=== PATIENT | male | born 1960 | race Caucasian/White ===

== ENCOUNTER → 2018-01-17 13:50 | Outpatient (CLI) | payer OTHER, MEDICARE, SELFPAY | PROVIDERS: Visit Provider Nurse Practitioner Family | DX: R69 Illness, unspecified (principal) ==

== ENCOUNTER → 2018-01-28 14:23 | Outpatient (CLI) | payer OTHER, MEDICARE, SELFPAY ==
--- NOTE | 2018-01-28 14:26 | CI_ITS ---
Cerebrovascular Exam Indications: 785.9 Bruit. IMPRESSIONS 1. The bilateral vertebral arteries are patent with normal antegrade flow. 2. Study suggests less than 20% stenosis involving the right internal carotid artery and the left internal carotid artery. Carotid duplex study. Complete study and Doppler flow study including spectral analysis, color and issa scale imaging. Height: Height: 175.3cm. Height: 69in. Weight: Weight: 81.6kg. Weight: 179.6lb. Body mass index: BMI: 26.6kg/m^2. Body surface area: BSA: 2.01m^2. Location: Vascular laboratory. Patient status: Outpatient. Tables: Arterial flow: + +--------+--------+ Location V sys V ed + +--------+--------+ Right CCA - proximal 95.9cm/s 27.5cm/s + +--------+--------+ Right CCA - distal 116cm/s 36.1cm/s + +--------+--------+ Right ECA 112cm/s -------- + +--------+--------+ Right ICA - proximal 136cm/s 37.7cm/s + +--------+--------+ Right ICA - mid 95.9cm/s 32.2cm/s + +--------+--------+ Right ICA - distal 99cm/s 30.6cm/s + +--------+--------+ Right vertebral 34.6cm/s -------- + +--------+--------+ Left CCA - proximal 92.7cm/s 24.4cm/s + +--------+--------+ Left CCA - distal 109cm/s 33cm/s + +--------+--------+ Left ECA 149cm/s 130cm/s + +--------+--------+ Left ICA - proximal 110cm/s 40.9cm/s + +--------+--------+ Left ICA - mid 95.9cm/s 30.6cm/s + +--------+--------+ Left ICA - distal 65.2cm/s 19.6cm/s + +--------+--------+ Left vertebral 49.5cm/s -------- + +--------+--------+ Velocity ratios: + + + + + + Right, V sys Right, V ed Left, V sys Left, V ed + + + + + + Max ICA/dist CCA 1.17 1.04 1.01 1.24 + + + + + + (Report amended ) Electronically signed by: Tan Retana [id number]
== END ==
PROVIDERS: Family Provider Physician Assistant; PCP Nurse Practitioner Family; Visit Provider Nurse Practitioner Family
DX: R09.89 Other specified symptoms and signs involving the circulatory and respiratory systems (principal)
CPT/HCPCS: 93880

== ENCOUNTER → 2018-02-07 08:38 | Outpatient (CLI) | payer OTHER, MEDICARE, SELFPAY ==
[2018-02-07 09:28] LABS: Basophils % 0.5 % (0.1-2.0); Eosinophils # 0.2 K/mm3 (0.0-0.4); Eosinophils % 3.7 % (0.1-12.0); Hematocrit 40.4 % (42.0-52.0); Hemoglobin 12.3 g/dL (14.1-18.0); Lymphocytes # 1.1 K/mm3 (0.7-4.5); Lymphocytes % 23.9 K/mm3 (10-50); Mean Corpuscular HGB Conc 30.6 g/dL (31.8-35.4); Mean Corpuscular Hemoglobin 31.6 pg (27.0-31.2); Mean Corpuscular Volume 103.3 fl (80-94); Mean Platelet Volume 7.8 fl (7.4-10.4); Monocytes # 0.5 K/mm3 (0.1-1.0); Neutrophils # 2.9 K/mm3 (1.8-7.8); Neutrophils % 61.8 % (37.0-80.0); Platelet Count 240 K/mm3 (142-424); Red Blood Count 3.91 M/mm3 (4.60-6.20); Red Cell Distribution Width 13.7 % (11.5-17.5); White Blood Count 4.7 K/mm3 (4.8-10.8)
[2018-02-07 10:00] LABS: Alanine Aminotransferase 18 U/L (12-78); Albumin Level 3.6 gm/dL (3.4-5.0); Albumin/Globulin Ratio 1.1 (1.1-1.8); Alkaline Phosphatase 93 U/L (46-116); Anion Gap 13.6 mEq/L (5-15); Aspartate Amino Transferase 13 U/L (15-37); Bilirubin,Total 0.2 mg/dL (0.2-1.0); Blood Urea Nitrogen 23 mg/dL (7-18); Calcium 9.1 mg/dL (8.5-10.1); Carbon Dioxide 26 mmol/L (21.0-32.0); Chloride 106 mmol/L (98-107); Chol/HDL Ratio 5.4 (1-3.5); Cholesterol 204 mg/dL (140-200); Creatinine,Serum 0.88 mg/dL (0.70-1.30); Estimated Glomerular Filt Rate 89 ml/min (>60); GFR (African American) 108 ML/MIN (>60); Globulin 3.4 gm/dl (1.3-3.2); Glucose 86 mg/dL (74-106); HDL Cholesterol 38 mg/dL (27-67); LDL Cholesterol 148 mg/dL (0-130); Potassium 4.6 mmoL/L (3.5-5.1); Sodium 141 mmol/L (136-145); Triglycerides 90 mg/dL (30-200); VLDL Cholesterol 18 mg/dL (0-40)
== END ==
PROVIDERS: Visit Provider Nurse Practitioner Family
DX: R69 Illness, unspecified (principal); Z13.220 Encounter for screening for lipoid disorders
CPT/HCPCS: 36415; 80053; 80061; 85025

== ENCOUNTER → 2018-11-21 07:16 | Outpatient (CLI) | payer OTHER, MEDICARE, SELFPAY ==
--- NOTE | 2018-11-21 07:22 | CA_ITS ---
PROCEDURE: INDICATIONS FOR THE TEST: Chest pain COPD Heart Murmur Tobacco Smoking Palpitations Fatigue+ Syncope Edema Hypertension Diabetes Mellitus Rheumatic Fever SOB TORRES Obesity Hyperlipidemia Family History HD Additional History CAD, ABN EKG PATIENT INFORMATION HEIGHT: 69 WEIGHT:186 GENDER: Male B/P:110/71 2-D/M-MODE INTERPRETATION: 2-D MEASUREMENTS OBSERVED VALUES IN CMS Right Ventricular Dimension (RVDd) 2.2 Interventricular Septum (Thickness)(IVsd) 1.0 Left Ventricular Internal Dimensions(LVIDd) 5.4 Left Ventricular Posterior Wall (Thickness)(LVPWd) 0.8 Aortic Root 3.2 Aortic Cusp Separation 1.9 Left Atrial Dimensions (LAD) 3.4 2D 1. Left atrium is normal size, left ventricle is normal size, there is no concentric left ventricular hypertrophy, visually estimated ejection fraction 55% with no regional wall motion abnormality. 2. The right atrium and right ventricle are normal size and contractility. 3. The aortic valve is minimally thickened and fibrosed. 4. The mitral and tricuspid valvular grossly normal. 5. The pulmonic valve is grossly normal. 6. No significant pericardial effusion noted. DOPPLER INTERROGATION: Doppler interrogation of the aortic, mitral and tricuspid valvular presence of mild mitral and tricuspid regurgitation, tricuspid regurgitation jet velocity is inadequate for calculation of the right ventricular systolic pressure, diastolic parameters are inconclusive. CONCLUSION: 1. Normal left ventricular size, preserved left ventricular systolic function, visually estimated ejection fraction 55% with no regional wall motion abnormality, diastolic parameters are inconclusive. 2. Mild mitral and tricuspid regurgitation 3. No significant pericardial effusion noted.
--- NOTE | 2018-11-21 07:52 | NM_ITS ---
History and Indications: Hyperlipidemia, family history, fatigue cardiomegaly Procedure: Patient received a 0.4 mg of intravenous Lexiscan, resting heart rate was 62 bpm resting blood pressure 117/68, with Lexiscan maximum heart rate achieved was 74 bpm which is less than 85% of the maximum] heart rate and a blood pressure was 83/51. With Lexiscan patient complained of syncope, shortness of breath. Electrocardiogram: Resting electrocardiogram showed sinus rhythm nonspecific ST-T changes, with Lexiscan there is less than 1.[address] segment depression noted from the baseline EKG. The EKG portion of the Lexiscan Myoview is nondiagnostic. Cardiac stress and resting SPECT images: Cardiac stress and resting SPECT images were obtained using technetium 99 Myoview 31.9 mCi stress and 10.0 mCi at rest. Gated SPECT further analysis of segmental wall motion and calculation of the ejection fraction also done. Cardiac stress and resting SPECT images show uniform myocardial activity without segmental perfusion abnormality, computer derived ejection fraction is 58% with no regional wall motion abnormality, right ventricle is normal size and contractility. Conclusion: 1. The EKG portion of the Lexiscan Myoview is nondiagnostic. 2. No scintigraphic evidence of reversible ischemia seen, computer derived ejection fraction 58% with no regional wall motion abnormality, right ventricle is normal size and contractility. 3. Normal Lexiscan Myoview study.
--- NOTE | 2018-11-21 10:24 | HMH.ITSHM ---
Current Home Medications as stated by this patient Sonido York or printing sales representative. []citalopram
== END ==
PROVIDERS: PCP Emergency Medicine; Visit Provider Nurse Practitioner Family
DX: R94.31 Abnormal electrocardiogram [ECG] [EKG] (principal); R93.89 Abnormal findings on diagnostic imaging of other specified body structures; E78.5 Hyperlipidemia, unspecified; I25.10 Atherosclerotic heart disease of native coronary artery without angina pectoris; I25.84 Coronary atherosclerosis due to calcified coronary lesion
CPT/HCPCS: 78452; 93017; 93306; A9502

== ENCOUNTER → 2019-05-28 11:45 | Outpatient (CLI) | payer OTHER, MEDICARE, SELFPAY ==
[2019-05-28 13:00] LABS: Alanine Aminotransferase 15 U/L (12-78); Albumin Level 3.9 gm/dL (3.4-5.0); Alkaline Phosphatase 106 U/L (46-116); Aspartate Amino Transferase 13 U/L (15-37); Bilirubin,Direct 0.1 mg/dL (0.0-0.2); Bilirubin,Indirect 0.7 mg/dL (0.0-0.9); Bilirubin,Total 0.8 mg/dL (0.2-1.0); Chol/HDL Ratio 3.2 (1-3.5); Cholesterol 159 mg/dL (140-200); HDL Cholesterol 49 mg/dL (27-67); LDL Cholesterol 98 mg/dL (0-130); Total Protein,Serum 7.3 gm/dL (6.4-8.2); Triglycerides 59 mg/dL (30-200); VLDL Cholesterol 12 mg/dL (0-40)
== END ==
PROVIDERS: Urology; Visit Provider Internal Medicine Cardiovascular Disease
DX: E78.2 Mixed hyperlipidemia (principal)
CPT/HCPCS: 36415; 80061; 80076

== ENCOUNTER → 2021-08-10 07:11 | Outpatient (CLI) | payer OTHER, MEDICARE, SELFPAY ==
--- NOTE | 2021-08-10 | CA_ITS ---
APPROVED REPORT Exam: Pharmacologic Technologist: Sherrill Garza, Ht: 5 ft 9 in Wt: 206 lbs BSA: 2.09 m2 HR: 64 bpm BP: 140/84 mmHg Rhythm: NSR, NORMAL Medical History Medical History: Hyperlipidemia Medications: Asa,,,,, Atorvastatin,,,,, Citalopram,,,,, Allergies: No known drug allergies Cardiac Risk Factors: Hyperlipidemia Stress Test Details Test: LEXISCAN HR Resting HR: 62 bpm Max Heart Rate (APMHR): 159.300592 bpm Max HR Achieved: 76 bpm Target HR (85% APMHR): 135.509130 bpm % of APMHR: 47.80 Recovery HR: 68 bpm BP Resting BP: 140/84 mmHg Max BP: 140/84 mmHg Recovery BP: 124.0/73.0 mmHg ECG Resting ECG: NSR, NORMAL Clinical Exercise duration: 04:17 min Highest Stage Achieved: Exercise capacity: 1.0 METs Stress ECG Conclusion PT HAD NEAR SYNCOPE DUE TO MARKED DROP IN BP. PLACED IN TRANDELENBURG POSITION. NO OTHER SXS REPORTED. NO SIGNIFICANT CHANGES. MARKED DROP IN BP WITH LEXISCAN STRESS, OTHERWISE UNREMARKABLE. MYOVIEW IMAGES REPORTED SEPARATELY. Test Summary RECOVERY 05:00 . . 74 . 104/ 57 . . Stage 1 01:00 . . 66 . . . . Stage 2 01:00 . . 72 . . . . Stage 3 01:00 . . 68 . 64/ 34 . . Stage 4 01:00 . . 66 . 72/ 41 . . Stage 4 01:17 . . 67 . 72/ 41 . Stop exercise at 04:17 RECOVERY 01:00 . . 66 . 94/ 55 . . RECOVERY 02:00 . . 67 . 101/ 58 . . RECOVERY 03:00 . . 76 . 101/ 58 . . RECOVERY 04:00 . . 73 . 104/ 57 . . RECOVERY 05:00 . . 74 . 104/ 57 . . RECOVERY 06:00 . . 71 . 107/ 68 . . RECOVERY 07:00 . . 69 . 111/ 66 . . RECOVERY 08:00 . . 72 . 111/ 66 . . RECOVERY 09:00 . . 73 . 113/ 69 . . RECOVERY 10:00 . . 70 . 113/ 69 . . RECOVERY 11:00 . . 70 . 113/ 69 . . RECOVERY 12:00 . . 71 . 115/ 70 . . RECOVERY 13:00 . . 70 . 115/ 70 . . RECOVERY 14:00 . . 70 . 115/ 70 . . RECOVERY 14:56 . . 69 . 124/ 73 . . Electronically signed by : Daryl Foster MD 08/10/2021 19:16:28
--- NOTE | 2021-08-10 07:12 | NM_ITS ---
APPROVED REPORT Exam: Nuclear Stress Test Indication: Chest pain, Abnormal EKG, HTN, High cholesterol, Family history Patient Location: Outpatient Stress Tech: Sherrill Garza PR Tech:Susan Holman, ARRT, RT (R)(N) Ht: 5 ft 9 in Wt: 206 lbs HR: 62 bpm BP: 140/84 mmHg BSA: 2.09 m2 BMI: 30.4 History: Chest pain, Abnormal EKG, HTN, High cholesterol, Family history Procedure: Patient received a 0.4 mg of intravenous Lexiscan, resting heart rate 62 bpm, resting blood pressure 140/84 mmHg, with Lexiscan maximum heart rate achived was 76 bpm which is Less than 85 % of the maximum predicted heart rate and blood pressure was 140/84 mmHg. With Lexiscan, patient denied any complaint of chest pain. Electrocardiogram Resting electrocardiogram showed sinus rhythm nonspecific ST-T changes, with Lexiscan there is less than 1.[address] segment depression noted from the baseline EKG. The EKG portion of the Lexiscan is nondiagnostic. Cardiac Stress and Resting SPECT Images: Cardiac Stress and Resting SPECT images were obtained using technetium 99m Myoview 31.9 mCi stress and 10.42 mCi at rest. Gated SPECT for analysis of segmental wall motion and calculation of the ejection fraction also done. Cardiac stress and resting SPECT images show uniform myocardial activity without segmental perfusion abnormality, computer derived ejection fraction is 57% with no regional wall motion abnormality, right ventricle is normal size and contractility. Conclusion: 1. The EKG portion of the Lexiscan is nondiagnostic. 2. No scintigraphic evidence of reversible ischemia seen, computer derived ejection fraction is 57% with no regional wall motion abnormality, right ventricle is normal size and contractility. 3. Normal Lexiscan Myoview study. Electronically signed by : Daryl Foster MD 08/10/2021 21:43:41
--- NOTE | 2021-08-10 08:22 | CA_ITS ---
APPROVED REPORT Line Painting Machine Operator: ROSALINA Laterality: Bilateral Indications: LIZ Doppler Spectral Velocity Analysis ECA (R) 99.20/19.30 cm/s ECA (L) 108.80/22.20 cm/s dICA (R) 88.60/35.60 cm/s dICA (L) 120.40/38.50 cm/s Murtaza (R) 131.90/52.00 cm/s Murtaza (L) 117.50/36.60 cm/s pICA (R) 78.00/26.00 cm/s pICA (L) 146.40/34.70 cm/s dCCA (R) 77.00/23.50 cm/s dCCA (L) 72.20/26.00 cm/s pCCA (R) 106.90/28.90 cm/s pCCA (L) 103.10/27.00 cm/s Vert (R) 84.80/24.10 cm/s Vert (L) 52.00/25.00 cm/s ICA/CCA 1.23 ICA/CCA 1.41 Findings Duplex evaluation demonstrates stenosis of the right proximal internal carotid artery in the range of 20-49% with PSV <140 cm/sec. Duplex evaluation demonstrates stenosis of the left proximal internal carotid artery in the range of 50-69% with PSV >140 cm/sec. Dulex evaluation demonstrates antegrade flow of the bilateral Vertebral Arteries. Conclusion Duplex evaluation demonstrates stenosis of the right proximal internal carotid artery in the range of 20-49% with PSV <140 cm/sec. Duplex evaluation demonstrates stenosis of the left proximal internal carotid artery in the range of 50-69% with PSV >140 cm/sec. Dulex evaluation demonstrates antegrade flow of the bilateral Vertebral Arteries. Electronically signed by : Tan Retana MD 08/10/2021 17:53:35
--- NOTE | 2021-08-10 08:22 | CA_ITS ---
APPROVED REPORT EXAM: Comprehensive 2D, Doppler, and color-flow Echocardiogram Medical Record Librarian: Latonia Ponce RDCS Ht: 5 ft 9 in Wt: 206lbs BSA: 2.09 BP: 143/90 mmHg Indications: ABN EKG,CAD,CP 2D Dimensions LVOT 2.07 cm (M/F) 1.5-2.5 M-Mode Dimensions RVDd 2.83 cm (0.9-2.6) LA Diam 3.91 cm (1.9-4.0) LVDd 4.97 cm (3.5-5.7) Ao Diam 3.26 cm (2.0-3.7) LVDs 4.15 cm (3.5-5.7) IVSd 1.25 cm (0.6-1.1) PWd 0.97 cm (0.6-1.1) EF (Teich) 34.50% FS 16.50% EDV (Teich) 116.60 mL TAPSE 2.19 (<1.7) ESV (Teich) 76.40 mL LV Diastology E Decel Time 220.00 (160-240 msec) E/A Ratio 0.7 MED E' 6.40 (< 7 cm/sec) E'/MED E' Ratio 6.14 (>14) LAT E' 7.80 (<10 cm/sec) E/LAT E' Ratio 5.04 (>14) Mitral Valve MV E Max Parth. 39.00 (40-130 cm/s) MV A Velocity 57.00 (40-130 cm/s) E/A Ratio 0.68 MV Decel. Time 220.00 (160-240 ms) MV PHT 64.00 ms Tricuspid Valve TR P. Velocity 241.00 cm/s RAP Estimate 10.00 mmHg RVSP 33.20 mmHg Left Ventricle Left atrium is mildly enlarged, left ventricle is normal size, mild concentric left ventricular hypertrophy, visually estimated ejection fraction 55% with no obvious regional wall motion abnormality, grade 1 diastolic dysfunction seen without tissue Doppler evidence of raise left atrial pressure. Right Ventricle Right atrium and right ventricle qualitatively mildly enlarged with normal contractility. Aortic Valve Aortic valve is minimally thickened and fibrosed, there is no aortic stenosis or aortic insufficiency. Mitral Valve Mitral valve is grossly normal, there is trace mitral regurgitation. Tricuspid Valve Tricuspid grossly normal, there is trace tricuspid regurgitation, tricuspid regurgitation jet velocity is inadequate for calculation of the right ventricular systolic pressure. Pulmonic Valve Pulmonic valve is poorly visualized. Great Vessels Aortic root is normal size. Inferior vena cava is normal size with normal inspiratory collapse. Pericardium No significant pericardial effusion noted. Conclusion 1. Mild biatrial enlargement, normal left ventricular size, mild concentric left ventricular hypertrophy, visually estimated ejection fraction 55% with no regional wall motion abnormality, grade 1 diastolic dysfunction seen without tissue Doppler evidence of raise left atrial pressure. 2. Trace mitral and tricuspid regurgitation. 3. No significant pericardial effusion noted. 4. Inferior vena cava is normal size with normal inspiratory collapse. Electronically signed by : Daryl Foster MD 08/10/2021 20:27:03
--- NOTE | 2021-08-10 09:14 | HMH.ITSHM ---
Current Home Medications as stated by this patient Sonido York or lead generation representative. []CITALOPRAM ATORVASTATIN ASA
== END ==
PROVIDERS: PCP Nurse Practitioner Family; Visit Provider Urology
DX: R07.9 Chest pain, unspecified (principal); R42 Dizziness and giddiness; I25.10 Atherosclerotic heart disease of native coronary artery without angina pectoris; I10 Essential (primary) hypertension; I25.84 Coronary atherosclerosis due to calcified coronary lesion; E78.2 Mixed hyperlipidemia; I65.29 Occlusion and stenosis of unspecified carotid artery; R94.31 Abnormal electrocardiogram [ECG] [EKG]
CPT/HCPCS: 78452; 93017; 93306; 93880; A9502; J2785

== ENCOUNTER → 2022-02-15 09:19 | Outpatient (CLI) | payer OTHER, MEDICARE, SELFPAY ==
--- NOTE | 2022-02-15 09:22 | CA_ITS ---
FINAL REPORT TECHNIQUE: Color Doppler, duplex Doppler and issa scale sonography of the bilateral neck arterial vasculature was performed. Velocities were measured in the carotid arteries. Stenosis evaluation based on the validated velocity criteria. CLINICAL HISTORY: LIZ FINDINGS: The peak systolic velocity of the right common carotid artery is 113 cm/s. The peak systolic velocity of the right internal carotid artery is 136 cm/s and end diastolic velocity 56 cm/s. The ICA/CCA ratio is 1.34. A mild amount of plaque is present. The right external carotid artery is patent. The right vertebral artery is patent with antegrade flow. The peak systolic velocity of the left common carotid artery is 122 cm/s. The peak systolic velocity of the left internal carotid artery is 172 cm/s and end diastolic velocity 47 cm/s. The ICA/CCA ratio is 2.11. A mild amount of plaque is present. The left external carotid artery is patent.The left vertebral artery is patent with antegrade flow. IMPRESSION: Less than 50% bilateral carotid stenosis. Bilateral patent vertebral arteries with antegrade flow. Reviewed, Interpreted and Dictated by Al Marina III, MD Transcribed by Devorah Mendosa Authenticated and [facility]
== END ==
PROVIDERS: PCP Nurse Practitioner Family; Visit Provider Urology
DX: I65.23 Occlusion and stenosis of bilateral carotid arteries (principal)
CPT/HCPCS: 93880

== ENCOUNTER → 2022-04-05 09:14 | Outpatient (CLI) | payer OTHER, MEDICARE, SELFPAY ==
[2022-04-05 09:49] LABS: Basophils # 0.1 K/mm3 (0-0.2); Basophils % 0.8 % (0.1-2.0); Eosinophils # 0.2 K/mm3 (0.0-0.4); Hematocrit 46.2 % (42.0-52.0); Lymphocytes # 1.3 K/mm3 (0.7-4.5); Lymphocytes % 21.6 % (10-50); Mean Corpuscular HGB Conc 30.4 g/dL (31.8-35.4); Mean Corpuscular Hemoglobin 31.9 pg (27.0-31.2); Mean Corpuscular Volume 105.1 fl (80-94); Mean Platelet Volume 8.5 fl (7.4-10.4); Monocytes # 0.5 K/mm3 (0.1-1.0); Monocytes % 8.6 % (1.7-9.3); Neutrophils # 3.9 K/mm3 (1.8-7.8); Platelet Count 262 K/mm3 (142-424); Red Blood Count 4.39 M/mm3 (4.60-6.20); Red Cell Distribution Width 14.3 % (11.5-17.5); White Blood Count 5.8 K/mm3 (4.8-10.8)
[2022-04-05 10:31] LABS: Alanine Aminotransferase 11 U/L (12-78); Albumin Level 3.7 g/dl (3.5-5.0); Alkaline Phosphatase 104 U/L (38-126); Anion Gap 7.3 mEq/L (5-15); Aspartate Amino Transferase 19 U/L (17-59); Bilirubin,Direct 0.1 mg/dl (0.0-0.4); Bilirubin,Indirect 0.2 mg/dL (0.0-0.9); Bilirubin,Total 0.3 mg/dl (0.2-1.3); Bilirubin,Unconjugated 0.2 mg/dL (0.0-1.1); Blood Urea Nitrogen 14 mg/dl (9-20); Calcium 8.9 mg/dl (8.4-10.2); Carbon Dioxide 30 mmol/L (22.0-30.0); Chloride 107 mmol/L (98-107); Chol/HDL Ratio 4.2 (1-3.5); Cholesterol 173 mg/dl (140-200); Estimated Glomerular Filt Rate 86 ml/min (>60); GFR (African American) 103 ML/MIN (>60); Glucose 97 mg/dl (74-100); HDL Cholesterol 41 mg/dl (40-60); Magnesium 1.9 mg/dl (1.6-2.3); Potassium 4.3 mmoL/L (3.5-5.1); Sodium 140 mmol/L (136-145); Total Protein,Serum 6.7 g/dl (6.3-8.2); Triglycerides 71 mg/dl (30-150); VLDL Cholesterol 14 mg/dL (0-40)
[2022-04-05 10:42] LABS: Direct LDL Cholesterol 93.02 mg/dL (100-129)
[2022-04-05 10:47] LABS: Free T4 (Free Thyroxine) 1.06 ng/dl (0.78-2.19)
[2022-04-05 11:02] LABS: Prostate Specific Ag Screen 4.9 ng/ml (0.0-4.0); Thyroid Stimulating Hormone 3.16 uIU/mL (0.465-4.68)
[2022-04-08 13:10] LABS: Testosterone, Total, LC/MS 673.4 ng/dL (264.0-916.0); Testosterone,Free 29.3 pg/mL (6.6-18.1)
== END ==
PROVIDERS: PCP Emergency Medicine; Visit Provider Physician Assistant
DX: I25.10 Atherosclerotic heart disease of native coronary artery without angina pectoris (principal); I25.84 Coronary atherosclerosis due to calcified coronary lesion; I10 Essential (primary) hypertension; E78.2 Mixed hyperlipidemia; I65.23 Occlusion and stenosis of bilateral carotid arteries; N52.9 Male erectile dysfunction, unspecified; Z12.5 Encounter for screening for malignant neoplasm of prostate
CPT/HCPCS: 36415; 80048; 80061; 80076; 83735; 84402; 84403; 84439; 84443; 85025; G0103

== ENCOUNTER → 2022-05-02 10:18 | Outpatient (CLI) | payer OTHER, MEDICARE, SELFPAY ==
[2022-05-02 11:30] LABS: Blood Urea Nitrogen 13 mg/dl (9-20); Estimated Glomerular Filt Rate 86 ml/min (>60); GFR (African American) 103 ML/MIN (>60)
== END ==
PROVIDERS: PCP Emergency Medicine; Visit Provider Surgery
DX: Z01.812 Encounter for preprocedural laboratory examination (principal)
CPT/HCPCS: 36415; 82565; 84520

== ENCOUNTER → 2022-05-09 10:20 | Outpatient (CLI) | payer OTHER, MEDICARE, SELFPAY | PROVIDERS: PCP Emergency Medicine; Visit Provider Surgery | DX: Z01.812 Encounter for preprocedural laboratory examination (principal) ==

== ENCOUNTER → 2022-05-10 08:29 | Outpatient (CLI) | payer OTHER, MEDICARE, SELFPAY ==
--- NOTE | 2022-05-10 08:29 | CT_ITS ---
FINAL REPORT CLINICAL HISTORY: abdominal pain, umbilical hernia, hx of tongue cancer with chemo and radiation FINDINGS: CT OF THE ABDOMEN AND PELVIS WITH CONTRAST Axial CT images of the abdomen and pelvis were obtained after the administration of oral and iv contrast. Coronal reformatted images were also obtained and reviewed.This study was performed with techniques to keep radiation doses as low as reasonably achievable (ALARA). Individualized dose reduction techniques using automated exposure control or adjustment of mA and/or kV according to the patient's size were employed. Abdomen: There are bibasilar pulmonary opacities likely representing atelectasis or scarring. The heart is normal in size. The liver has an unremarkable appearance, without evidence of mass or biliary ductal dilatation. There is mild nonspecific gallbladder wall thickening. The spleen is unremarkable. No adrenal mass is present. The pancreas has an unremarkable appearance. There is there are several bilateral renal cysts measuring up to 4.2 cm on the left. The aorta is normal in caliber. There is no free fluid or adenopathy. There is an umbilical hernia containing fat with the hernia sac measuring 6.5 cm and the orifice measuring 2.8 cm. Pelvis: The appendix is not identified consistent with the history of appendectomy. The urinary bladder is unremarkable. No inflammatory process is seen. There are right greater than left bilateral inguinal hernias containing fat. There is no evidence of bowel obstruction. There has been fusion of L4-L5. There is a 3.2 cm lytic lesion in the posteromedial right iliac bone with cortical disruption laterally. IMPRESSION: Bilateral renal cysts. Umbilical and bilateral inguinal hernias. Lytic lesion in the right iliac bone of uncertain etiology may represent postoperative change or a mass. Reviewed, Interpreted and Dictated by Al Marina III, MD Transcribed by Andrew Rosales Authenticated and [facility]
== END ==
PROVIDERS: PCP Emergency Medicine; Visit Provider Surgery
DX: R10.9 Unspecified abdominal pain (principal)
CPT/HCPCS: 74177; Q9967

== ENCOUNTER → 2022-06-09 07:49 | Outpatient (CLI) | payer MEDICARE, SELFPAY ==
[2022-06-09 08:34] LABS: Basophils % 0.4 % (0.1-2.0); Eosinophils # 0.2 K/mm3 (0.0-0.4); Eosinophils % 3.5 % (0.1-12.0); Hematocrit 45.3 % (42.0-52.0); Hemoglobin 14.3 g/dL (14.1-18.0); Lymphocytes # 1.8 K/mm3 (0.7-4.5); Lymphocytes % 26.4 % (10-50); Mean Corpuscular HGB Conc 31.6 g/dL (31.8-35.4); Mean Corpuscular Hemoglobin 32.1 pg (27.0-31.2); Mean Corpuscular Volume 101.7 fl (80-94); Mean Platelet Volume 8.5 fl (7.4-10.4); Monocytes # 0.6 K/mm3 (0.1-1.0); Monocytes % 9.1 % (1.7-9.3); Neutrophils # 4.1 K/mm3 (1.8-7.8); Neutrophils % 60.6 % (37.0-80.0); Platelet Count 245 K/mm3 (142-424); Red Blood Count 4.46 M/mm3 (4.60-6.20); Red Cell Distribution Width 14.3 % (11.5-17.5); White Blood Count 6.8 K/mm3 (4.8-10.8)
[2022-06-09 08:50] LABS: Anion Gap 11.7 mEq/L (5-15); Blood Urea Nitrogen 14 mg/dl (9-20); Calcium 8.9 mg/dl (8.4-10.2); Carbon Dioxide 31 mmol/L (22.0-30.0); Chloride 100 mmol/L (98-107); Estimated Glomerular Filt Rate 86 ml/min (>60); GFR (African American) 103 ML/MIN (>60); Glucose 97 mg/dl (74-100); Potassium 3.7 mmoL/L (3.5-5.1); Sodium 139 mmol/L (136-145)
== END ==
PROVIDERS: PCP Emergency Medicine; Visit Provider Surgery
DX: Z01.812 Encounter for preprocedural laboratory examination (principal); Z20.822 Contact with and (suspected) exposure to COVID-19; K42.9 Umbilical hernia without obstruction or gangrene
CPT/HCPCS: 36415; 80048; 82565; 84520; 85025; C9803; U0003; U0005

== ENCOUNTER 2022-06-12 07:06 | Day surgery (SDC) | payer MEDICARE, SELFPAY ==
[2022-06-08 14:03] VITALS: BMI 30.2
--- NOTE | 2022-06-09 14:48 | SUR.PREOP ---
1448- Spoke to ARNIE Boone in cardiology regarding pt's ASA use. Pt is ok to stop ASA starting today and will restart ASA the day after surgery. 1450- Notified pt of instructions for ASA use. Pt verbalized understanding.
[2022-06-12] VITALS (11 sets, daily range): BP systolic 153–163; BP diastolic 90–98; PULSE 68–80; RESP 16–20; TEMP 36.3–43; O2SAT 92–97
--- NOTE | 2022-06-12 07:30 | P.PN_ITS ---
[facility] Medical History Abnormal CT scan, chest Abnormal EKG Bilateral leg numbness Carotid artery stenosis Coronary atherosclerosis due to calcified coronary lesion Depression Dizziness History of cataract History of gastroesophageal reflux (GERD) History of stroke HLD (hyperlipidemia) Left carotid bruit Leg pain, bilateral Tongue cancer Surgical History History of appendectomy History of back surgery History of cataract surgery History of surgery Family History Father Family history of heart disease Grandmother Family history of heart disease Family/Other Family history of heart disease Family history of cancer Social History Smoking Status: Former smoker pack-years: 30 alcohol intake: never substance use type: denies use current occupational status: disabled Travel in the last 8 weeks: None housing: house [facility] Anesthesia Checklist Patient Identification Patient Identification: Arm Band and Verbal (Name & ) Structural Data Admitted From: Home Planned Operative Procedure/s: Umbilical hernia repair Consent for Planned Operative Procedure(s) Verified: Yes NPO Status Verified Time NPO: 05:30 (Sip of water with meds) Chart Verification Results Verified: CBC and BMP Airway Assessment C-Spine Mobility Assessed: Yes TMJ Mobility Assessed: Yes Dentition: Edentulous Neurological Assessment Level of Consciousness: Awake Hx Seizures: No Numbness or tingling in extremities: No Anesthesia Plan Anesthesia Risk discussed: Yes Anesthesia Plan: Verified ASA Class: III Anesthesia Type: General
--- NOTE | 2022-06-12 09:50 | P.OP_ITS ---
Date of procedure: 06/12/22 Pre-op Diagnosis:: Umbilical hernia Post-op Diagnosis:: Same Procedure performed:: Open repair of chronically incarcerated umbilical hernia Surgeon:: Al Gallegos MD ROUGH RICE GRADER:: Parveen Gotti Anesthesia: DIONNE Estimated blood loss (mL): 15 Clinical Note:: Patient presents for umbilical hernia repair. He is a 62-year-old male originally referred by Dr. Sellers for evaluation of umbilical hernia. 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 He did have a prior PEG tube placement. He has longstanding history of umbilical hernia. It is relatively asymptomatic to him but is very large. He was sent for surgi ranjit consultation and recently seen in the office at which time he was found to have a rather large obvious umbilical hernia with stretching of the skin and discoloration. I ordered a CT scan to better evaluate. This reveals findings of umbilical hernia containing fat with hernia sac measuring 6.5 cm and hernia defect orifice measuring 2.8 cm. Interestingly the patient also had incidental finding of bilateral inguinal hernias which are asymptomatic. Operative findings:: Moderate umbilical hernia with a large hernia sac with chronically incarcerated omentum Operative note:: Patient was taken to the operating room. He was given preoperative intravenous antibiotics. In the operating room he was placed in the supine position. General anesthesia was induced via endotracheal tube. Abdomen was prepped and draped in the standard surgical fashion. Subumbilical skin incision was made. Dissection was carried down through subcutaneous tissues to the hernia sac which was incised. There was large amount of omentum. Dissection was carried down to the fascia. The omentum was unable to be reduced. Plan was made for excision of the herniated omentum. Omentum was sequentially clamped divided and ligated with Vicryl ties. The herniated omentum was sent off as a specimen ultimately containing the hernia sac as well. The peritoneum of the hernia sac was dissected free from the subcutaneous tissues and umbilical subdermis with electrocautery with dissection carried out down to the fascial defect. Fascial defect measured approximately 3 cm. Underlying fascia was swept to ensure there were no adhesions. Large sized Bard Ventralex mesh measuring 8.0 cm was brought onto the field. It was inserted into the peritoneal cavity posterior to the defect. It was oriented intracorporeally. This is all mild good fascial overlap. The Prolene tails of the mesh were sutured superiorly and inferiorly to the edge of the fascia with interrupted 2-0 Prolene sutures. The tails were then cut flush with the fascia. Fascia was closed over the mesh with interrupted 0 Ethibond sutures. There was a large amount of stretched out extraneous redundant skin. Plan was made for excision of some of this to allow reconstruction of the umbilical area. Skin was marked with a skin marker and so me redundant skin was removed. This was sequentially removed with some additional excision of skin. This was sent off as umbilical skin. Local anesthetic was infiltrated. The umbilical subdermis was then reapproximated to the underlying fascia with several interrupted 2-0 Vicryl sutures. Subdermal tissues were closed with interrupted 2-0 Vicryl. Skin was closed with 4-0 Monocryl subcuticular fashion. Dermabond and clean dry sterile dressing was applied. Condition: stable Disposition: PACU Complications:: None immediately apparent
--- NOTE | 2022-06-12 09:53 | P.PNANES_ITS ---
[facility] Anesthesia Record Part I Anesthesia Record I Intake, IV Amount: 600 Estimated blood loss (mL): 5 Urine output (mL): 0 Blood Pressure: 153/96 SaO2: 94 Pulse Rate: 80 Respiratory Rate: 16 Temperature: 98.7 F Patient is:: Awake Stable to PACU at:: 09:52
--- NOTE | 2022-06-12 10:24 | PC.NURSE ---
1018-detailed report called to BERNICE Seo 1022-pt transported to post op via stretcher w/joe rails up and left in care of BERNICE Seo with bed locked in lowest position, vss, pt stable
--- NOTE | 2022-06-13 08:04 | P.PNANES_ITS ---
[facility] Anesthesia Record Part II Anesthesia Record Part II Discharge Time: 10:22 Destination: Surgical Day Care (OP Surgery) PACU nurse assessment reviewed?: Yes Patient Condition:: Good Anesthesia Complications:: None Swallowing reflex intact?: Yes Cyanosis?: No Blood Pressure: 153/94 Pulse Rate: 73 Temperature: 97.5 F Mental Status: Alert & Oriented Pain level:: 0 Nausea and/or vomitting:: None Intake, IV Amount: 0
[2022-06-13 08:06] VITALS: BP 153/94; PULSE 73; TEMP 36.4
== END 2022-06-12 10:58 | disposition home or self-care (01) ==
PROVIDERS: PCP Emergency Medicine; Visit Provider Surgery
DX: K42.0 Umbilical hernia with obstruction, without gangrene (principal); Z79.899 Other long term (current) drug therapy
CPT/HCPCS: 49587; 96374; C1781

== ENCOUNTER 2022-07-13 09:55 | Emergency (ER) | payer MEDICARE, SELFPAY ==
[2022-07-13 10:40] VITALS: BP 151/76; PULSE 92; RESP 24; TEMP 37.8; O2SAT 97; BMI 30.2
[2022-07-13 10:50] LABS: UTC Influenza A Antigen Positive (Negative)
[2022-07-13 10:51] LABS: UTC Influenza B Antigen Negative (Negative)
--- NOTE | 2022-07-13 11:10 | EXP.UTC ---
Discharge Plan Disposition Patient Disposition: Home, Self-Care Condition: Good Prescriptions Prescriptions: New oseltamivir [Tamiflu] 75 mg capsule 75 mg PO BID 5 Days Qty: 10 0RF No Action citalopram 10 mg tablet 20 mg PO DAILY atorvastatin 10 mg tablet 10 mg PO DAILY Rx Instructions: TAKE 1 TABLET BY MOUTH AT BEDTIME aspirin 81 mg tablet,delayed release (DR/EC) 81 mg PO DAILY Referrals Follow up/Referrals: Robinson Whatley MD [Primary Care Provider] - See instructions Activity Restrictions/Add. Instructions Additional Instructions/Restrictions: Start Tamiflu today if you are going to take it. Discussed risk and possible benefits. Lots of rest Increase Fluids water, Gatorade, powerade, pedialyte,if infant/toddler/child Alternate Tylenol and / or ibuprofen as discussed for fever, aches, chills Follow up IMMEDIATELY with your family doctor for new or worsening Symptoms OR no noticeable improvement over the next 48-72 hours, 911 for difficulty or breathing You or your child area contagious until no fever, aches, chills for 24 hours with medication for symptoms Help Prevent the spread of influenza: ?Wash your hands often. Use soap and water. Wash your hands after you use the bathroom, change a child's diapers, or sneeze. Wash your hands before you prepare or eat food. Use gel hand cleanser that has 60% alcohol, when soap and water are not available. Do not touch your eyes, nose, or mouth unless you have washed your hands first. Cover your mouth when you sneeze or cough. Cough into a tissue or the bend of your arm. If you use a tissue, throw it away immediately and wash your hands. Clean shared items with a germ-killing machine rug cleaner. Clean table surfaces, doorknobs, and light switches. Do not share towels, silverware, and dishes with people who are sick. Wash bed sheets, towels, silverware, and dishes with soap and water. Wear a mask over your mouth and nose if you are sick. The face mask may help protect others from becoming infected with the flu. Wear the mask when in common areas of your home or if you seek care with a healthcare provider. Stay away from others if you are sick. Stay at home until 24 hours after your fever and symptoms are gone. Clinical Impressions Clinical Impression: Influenza A Instructions Patient Instructions: DI for Influenza -- Adult, Oseltamivir Discharge ED Provider: Neha Viera [facility] [place] HPI General Stated complaint: BA, Drainage, SOA Mode of Arrival: Ambulatory Source of Information: Patient Limitations: No Limitations Time Seen by Provider: 07/13/22 11:10 Description of Symptoms (Recalled from Triage Doc. by RN): PATIENT C/O CHILLS, BODY ACHES, SOA AND FEVER SINCE YESTERDAY HEENT Symptoms (Recalled from RN notes): No Resp Symptoms (Recalled from RN notes): Yes Skin Symptoms (Recalled from RN notes): No MS Symptoms (Recalled from RN notes): No Functional Status (Recalled from RN notes): WNL History of Present Illness Provider Complaint: Patient states that he started yesterday with body aches, fever, nasal congestion that made it feel like he couldnt breath through his nose and chills State that last night he felt a little SOA from the drainage but felt ok when he would set up States that this morning he was having chills and fever and over all did not feel well so he came in Related Data Home Medications Medication Instructions Recorded Confirmed citalopram 10 mg tablet 20 mg PO DAILY MOOD 11/27/18 06/27/22 aspirin 81 mg tablet,delayed 81 mg PO DAILY HEART HEALTHY 06/08/22 06/27/22 release atorvastatin 10 mg tablet 10 mg PO DAILY Cholesterol 06/08/22 06/27/22 Previous Rx's Medication Instructions Recorded oseltamivir 75 mg capsule (Tamiflu) 75 mg PO BID 5 days #10 caps 07/13/22 A
[2022-07-13 11:30] VITALS: BP 151/76; PULSE 92; RESP 24; TEMP 37.8; O2SAT 97
== END 2022-07-13 11:32 | disposition home or self-care (01) ==
PROVIDERS: Emergency Provider Nurse Practitioner; PCP Emergency Medicine
DX: J10.1 Influenza due to other identified influenza virus with other respiratory manifestations (principal)
CPT/HCPCS: 87804; 99212; G0463

== ENCOUNTER → 2022-11-23 10:16 | Outpatient (CLI) | payer MEDICARE, SELFPAY ==
[2022-11-23 11:03] LABS: Basophils % 0.6 % (0.1-2.0); Eosinophils # 0.2 K/mm3 (0.0-0.4); Eosinophils % 3.4 % (0.1-12.0); Hematocrit 46.8 % (42.0-52.0); Hemoglobin 14.3 g/dL (14.1-18.0); Lymphocytes # 1.3 K/mm3 (0.7-4.5); Lymphocytes % 22.2 % (10-50); Mean Corpuscular HGB Conc 30.6 g/dL (31.8-35.4); Mean Corpuscular Hemoglobin 31.5 pg (27.0-31.2); Mean Corpuscular Volume 102.9 fl (80-94); Mean Platelet Volume 9.1 fl (7.4-10.4); Monocytes # 0.5 K/mm3 (0.1-1.0); Monocytes % 7.4 % (1.7-9.3); Neutrophils % 66.3 % (37.0-80.0); Platelet Count 275 K/mm3 (142-424); Red Blood Count 4.55 M/mm3 (4.60-6.20); Red Cell Distribution Width 14.2 % (11.5-17.5); White Blood Count 6.1 K/mm3 (4.8-10.8)
[2022-11-23 11:52] LABS: Alanine Aminotransferase 13 U/L (12-78); Albumin Level 3.9 g/dl (3.5-5.0); Albumin/Globulin Ratio 1.3 (1.1-1.8); Alkaline Phosphatase 102 U/L (38-126); Anion Gap 11.5 mEq/L (5-15); Aspartate Amino Transferase 21 U/L (17-59); Bilirubin,Total 0.6 mg/dl (0.2-1.3); Blood Urea Nitrogen 14 mg/dl (9-20); Calcium 8.6 mg/dl (8.4-10.2); Carbon Dioxide 29 mmol/L (22.0-30.0); Chloride 102 mmol/L (98-107); Estimated Glomerular Filt Rate 76 ml/min (>60); GFR (African American) 92 ML/MIN (>60); Globulin 3.1 g/dL (1.3-3.2); Glucose 89 mg/dl (74-100); Potassium 4.5 mmoL/L (3.5-5.1); Sodium 138 mmol/L (136-145)
[2022-11-23 13:03] LABS: Folate 7.45 ng/mL
[2022-11-23 15:28] LABS: Vitamin B12 < 159 pg/mL (239-931)
== END ==
PROVIDERS: PCP Emergency Medicine; Visit Provider Specialist
DX: R53.1 Weakness (principal); R93.89 Abnormal findings on diagnostic imaging of other specified body structures
CPT/HCPCS: 36415; 80053; 82607; 82746; 84425; 85025

== ENCOUNTER → 2022-11-29 23:00 | Outpatient (CLI) | payer MEDICARE, SELFPAY ==
[2022-12-01 10:41] LABS: PSA, Free 2.85 ng/mL; Prostate Specific Ag 9.5 ng/mL (0.0-4.0)
== END ==
PROVIDERS: PCP Emergency Medicine; Visit Provider Emergency Medicine
DX: R82.90 Unspecified abnormal findings in urine (principal); N48.29 Other inflammatory disorders of penis; R10.9 Unspecified abdominal pain; R97.20 Elevated prostate specific antigen [PSA]
CPT/HCPCS: 84153; 84154; 87086

== ENCOUNTER 2022-12-10 18:50 | Observation (INO) | payer MEDICARE, SELFPAY ==
[2022-12-10 18:50] VITALS: BP 137/91; PULSE 79; RESP 20; TEMP 36.9; O2SAT 95; BMI 28.1
--- NOTE | 2022-12-10 19:01 | XR_ITS ---
PROCEDURE INFORMATION: Exam: XR Right Ankle Exam date and time: 12/10/2022 7:04 PM Age: 62 years old Clinical indication: Injury or trauma; Fall TECHNIQUE: Imaging protocol: Radiologic exam of the right ankle. Views: 3 or more views. COMPARISON: CR XR FOOT RT MIN 3V 12/10/2022 7:03 PM FINDINGS: Bones/joints: There is a fracture of the lateral malleolus with lateral displacement of the distal fragment by approximally 1/3 shaft width. Distal tibia appears intact. Ankle joint is normally aligned. Moderate plantar spurring of the calcaneus noted. Soft tissues: Moderate soft tissue swelling of the ankle. IMPRESSION: Moderately displaced lateral malleolus fracture
--- NOTE | 2022-12-10 19:01 | XR_ITS ---
PROCEDURE INFORMATION: Exam: XR Right Foot Exam date and time: 12/10/2022 7:03 PM Age: 62 years old Clinical indication: Injury or trauma; Fall TECHNIQUE: Imaging protocol: Radiologic exam of the right foot. Views: 3 or more views. COMPARISON: No relevant prior studies available. FINDINGS: Bones/joints: There is a moderately displaced lateral malleolus fracture. No other acute fracture. There is moderate plantar spurring of the calcaneus. Soft tissues: Moderate soft tissue swelling of the foot noted. IMPRESSION: Lateral malleolus fracture.
--- NOTE | 2022-12-10 19:05 | EXP.UTC ---
Discharge Plan Disposition Patient Disposition: Still a Patient Condition: Fair Prescriptions Prescriptions: No Action citalopram 10 mg tablet 20 mg PO DAILY midodrine 10 mg tablet 10 mg PO TID Qty: 270 3RF Rx Instructions: do not give last dose of day after 6PM or within 4 hrs of bedtime tamsulosin [Flomax] 0.4 mg capsule 0.4 mg PO DAILY Qty: 30 0RF atorvastatin 10 mg tablet 10 mg PO DAILY Qty: 90 3RF Rx Instructions: TAKE 1 TABLET BY MOUTH AT BEDTIME aspirin 81 mg tablet,delayed release (DR/EC) 81 mg PO DAILY Referrals Follow up/Referrals: Robinson Whatley MD [Primary Care Provider] - See instructions Discharge ED Provider: Chacorta (ED)Robinson [facility] [place] HPI General Stated complaint: AO 12/08 Right foot pain and swollen Mode of Arrival: Ambulatory Source of Information: Patient Limitations: No Limitations Time Seen by Provider: 12/10/22 19:05 Description of Symptoms (Recalled from Triage Doc. by RN): PATIENT STATES HE FELL ON SUNDAY AND INJURED RIGHT FOOT AND ANKLE. SWELLING AND BRUISING NOTED TO AREA HEENT Symptoms (Recalled from RN notes): No Resp Symptoms (Recalled from RN notes): No Skin Symptoms (Recalled from RN notes): No MS Symptoms (Recalled from RN notes): Yes Functional Status (Recalled from RN notes): WNL History of Present Illness Provider Complaint: Patient states that he was at the bank on Sunday and slipped and fell and hurt his right foot and ankle States that he has continued to have pain, swelling and bruising to right foot States that he lives alone and has tried to stay off of it over the weekend using his can and walker to help him get around thinking it would help and get better but it hasnt so today when the swelling was worse he came in to get checked Related Data Home Medications Medication Instructions Recorded Confirmed citalopram 10 mg tablet 20 mg PO DAILY MOOD 11/27/18 11/29/22 aspirin 81 mg tablet,delayed 81 mg PO DAILY HEART HEALTHY 06/08/22 11/29/22 release Previous Rx's Medication Instructions Recorded atorvastatin 10 mg tablet 10 mg PO DAILY Cholesterol #90 tabs 10/16/22 midodrine 10 mg tablet 10 mg PO TID #270 tabs 11/15/22 tamsulosin 0.4 mg capsule (Flomax) 0.4 mg PO DAILY #30 caps 11/29/22 Allergies Allergy/AdvReac Type Severity Reaction Status Date / Time No Known Allergies Allergy Verified 11/29/22 16:42 Worker's Comp Is this a Worker's Comp case?: No [facility] Disclaimer: The information contained in this section may have been updated after the patient was seen, as this information can be updated by other users. Medical History Abnormal CT scan, chest Abnormal EKG Bilateral leg numbness Carotid artery stenosis Coronary atherosclerosis due to calcified coronary lesion Calcification on chest CT. Depression Dizziness History of cataract History of gastroesophageal reflux (GERD) History of stroke RIGHT EYE HLD (hyperlipidemia) Hypotension Left carotid bruit Leg pain, bilateral Right arm numbness Syncope Tongue cancer Surgical History History of appendectomy History of back surgery X2 History of cataract surgery RODDY History of hernia repair History of surgery FEEDING TUBE PLACED AND REMOVED. Family History Father Family history of heart disease Grandmother Family history of heart disease Family/Other Family history of heart disease Family history of cancer Social History Smoking Status: Former smoker pack-years: 30 alcohol intake: former substance use type: denies use current occupational status: disabled Travel in the last 8 weeks: None housing: house marital status: ROS Obtained: Yes All systems reviewed & no additional complaints except as docu
[2022-12-10 19:46] VITALS: BP 137/91; PULSE 79; RESP 20; TEMP 36.9; O2SAT 95
[2022-12-10 19:59] VITALS: BP 135/88; PULSE 80; RESP 19; TEMP 36.9; O2SAT 99; BMI 27.1
--- NOTE | 2022-12-10 20:15 | PC.NURSE ---
Pt's sister, Elham, clalled for an update. Pt gave his consent to update her and this was completed. & [phone]
[2022-12-10 20:21] LABS: Microscopic, Urine URINE MICROSCOPIC (MICROSCOPIC)
[2022-12-10 20:25] LABS: Appearance,Urine CLEAR (Clear); Bilirubin,Urine Negative (Negative); Blood, Urine Negative (Negative); Color,Urine YELLOW (Yellow); Glucose,Urine (UA) Negative (Negative); Ketones,Urine Negative (Negative); Leukocyte Esterase,Urine Negative (Negative); Nitrate,Urine Negative (Negative); Protein,Urine Negative (Negative); Specific Gravity, Urine 1.025 (1.005-1.030)
--- NOTE | 2022-12-10 20:25 | XR_ITS ---
PROCEDURE INFORMATION: Exam: XR Chest Exam date and time: 12/10/2022 8:29 PM Age: 62 years old Clinical indication: Injury or trauma; Fall TECHNIQUE: Imaging protocol: Radiologic exam of the chest. Views: 4 or more views. COMPARISON: CT ABDOMEN PELVIS W CON 05/10/2022 8:53 AM FINDINGS: Lungs: Unremarkable. No consolidation. Pleural spaces: Unremarkable. No pleural effusion. No pneumothorax. Heart/Mediastinum: Unremarkable. No cardiomegaly. Bones/joints: Mild degenerative changes of the spine and shoulders noted IMPRESSION: No acute disease
--- NOTE | 2022-12-10 20:25 | XR_ITS ---
PROCEDURE INFORMATION: Exam: XR Pelvis Exam date and time: 12/10/2022 8:28 PM Age: 62 years old Clinical indication: Injury or trauma; Fall TECHNIQUE: Imaging protocol: Radiologic exam of the pelvis. Views: 1 or 2 view. COMPARISON: CT ABDOMEN PELVIS W CON 05/10/2022 8:53 AM FINDINGS: Bones/joints: Osseous alignment is normal. No acute fracture. Old postoperative changes and degenerative changes noted in the lower lumbar spine. Soft tissues: Unremarkable. IMPRESSION: No acute abnormality
--- NOTE | 2022-12-10 20:27 | XR_ITS ---
PROCEDURE INFORMATION: Exam: XR Right Tibia and Fibula Exam date and time: 12/10/2022 8:25 PM Age: 62 years old Clinical indication: Injury or trauma; Fall; Additional info: Fall, distal fib FX TECHNIQUE: Imaging protocol: Radiologic exam of the right tibia and fibula. Views: 2 views. COMPARISON: CR XR ANKLE RT MIN 3V 12/10/2022 7:04 PM FINDINGS: Bones/joints: There is a moderately displaced distal fibula fracture. No other acute fracture evident. Mild degenerative changes noted at the right knee Soft tissues: Normal. IMPRESSION: Distal fibula fracture
[2022-12-10 20:45] LABS: Bacteria,Urine Trace /lpf; Squamous Epithelial Cell,Urine Occasional #/hpf (0-5)
[2022-12-10 21:12] LABS: Basophils # 0.1 K/mm3 (0-0.2); Basophils % 0.8 % (0.1-2.0); Eosinophils # 0.3 K/mm3 (0.0-0.4); Eosinophils % 4.2 % (0.1-12.0); Hematocrit 43.2 % (42.0-52.0); Hemoglobin 13.3 g/dL (14.1-18.0); Lymphocytes # 1.3 K/mm3 (0.7-4.5); Lymphocytes % 16.6 % (10-50); Mean Corpuscular HGB Conc 30.8 g/dL (31.8-35.4); Mean Corpuscular Volume 103.6 fl (80-94); Mean Platelet Volume 8.7 fl (7.4-10.4); Monocytes # 0.6 K/mm3 (0.1-1.0); Monocytes % 8.2 % (1.7-9.3); Neutrophils # 5.5 K/mm3 (1.8-7.8); Neutrophils % 70.3 % (37.0-80.0); Platelet Count 238 K/mm3 (142-424); Red Blood Count 4.17 M/mm3 (4.60-6.20); Red Cell Distribution Width 14.1 % (11.5-17.5); White Blood Count 7.8 K/mm3 (4.8-10.8)
[2022-12-10 21:17] LABS: Alanine Aminotransferase 13 U/L (12-78); Albumin Level 3.8 g/dl (3.5-5.0); Albumin/Globulin Ratio 1.1 (1.1-1.8); Alkaline Phosphatase 82 U/L (38-126); Anion Gap 3.6 mEq/L (5-15); Aspartate Amino Transferase 18 U/L (17-59); Bilirubin,Total 0.5 mg/dl (0.2-1.3); Blood Urea Nitrogen 20 mg/dl (9-20); Calcium 8.8 mg/dl (8.4-10.2); Carbon Dioxide 33 mmol/L (22.0-30.0); Chloride 103 mmol/L (98-107); Creatinine Clearance Estimated 90 mL/min (50-200); Estimated Glomerular Filt Rate 76 ml/min (>60); GFR (African American) 92 ML/MIN (>60); Globulin 3.4 g/dL (1.3-3.2); Glucose 100 mg/dl (74-100); Potassium 4.6 mmoL/L (3.5-5.1); Sodium 135 mmol/L (136-145); Total Protein,Serum 7.2 g/dl (6.3-8.2)
--- NOTE | 2022-12-10 21:35 | HMH.EDLOEX ---
Discharge Plan Disposition Patient Disposition: Admitted as Observation Condition: Fair Prescriptions Prescriptions: No Action citalopram 10 mg tablet 20 mg PO DAILY midodrine 10 mg tablet 10 mg PO TID Qty: 270 3RF Rx Instructions: do not give last dose of day after 6PM or within 4 hrs of bedtime tamsulosin [Flomax] 0.4 mg capsule 0.4 mg PO DAILY Qty: 30 0RF atorvastatin 10 mg tablet 10 mg PO DAILY Qty: 90 3RF Rx Instructions: TAKE 1 TABLET BY MOUTH AT BEDTIME aspirin 81 mg tablet,delayed release (DR/EC) 81 mg PO DAILY Referrals Follow up/Referrals: Robinson Whatley MD [Primary Care Provider] - See instructions Clinical Impressions Clinical Impression: Ankle fracture, right, Fall Discharge ED Provider: Chacorta (ED)Robinson Lower Extremity Injury HPI General Chief Complaint: Extremity Injury, Lower Stated Complaint: AO 12/08 Right foot pain and swollen Time Seen by Provider: 12/10/22 19:05 Mode of Arrival: Family Vehicle Source of Information: Patient and Medical Record Limitations: No Limitations Description of Symptoms (Recalled from ER Triage Doc. by RN): Pt fell while at the bank on Sunday. States he has had severe pain and has not moved from the couch much since the fall. He is not on any blood thinners. History of Present Illness HPI Narrative: pt with hx of orthostatic hypotension and fell sunday and has pain and swelling and dec wt bearing rt ankle - no other c/o MD complaint: ankle injury Onset (ago): day(s) Injury: Right: ankle Type of Injury: unknown Place: other ([facility]) Severity: moderate Exacerbating factors: weight bearing Context: fall Associated symptoms: swelling and unable to bear weight Other symptoms: none Related Data Home Medications Medication Instructions Recorded Confirmed citalopram 10 mg tablet 20 mg PO DAILY MOOD 11/27/18 11/29/22 aspirin 81 mg tablet,delayed 81 mg PO DAILY HEART HEALTHY 06/08/22 11/29/22 release Previous Rx's Medication Instructions Recorded atorvastatin 10 mg tablet 10 mg PO DAILY Cholesterol #90 tabs 10/16/22 midodrine 10 mg tablet 10 mg PO TID #270 tabs 11/15/22 tamsulosin 0.4 mg capsule (Flomax) 0.4 mg PO DAILY #30 caps 11/29/22 Allergies Allergy/AdvReac Type Severity Reaction Status Date / Time No Known Allergies Allergy Verified 11/29/22 16:42 [facility] Disclaimer: The information contained in this section may have been updated after the patient was seen, as this information can be updated by other users. Medical History Abnormal CT scan, chest Abnormal EKG Bilateral leg numbness Carotid artery stenosis Coronary atherosclerosis due to calcified coronary lesion Calcification on chest CT. Depression Dizziness History of cataract History of gastroesophageal reflux (GERD) History of stroke RIGHT EYE HLD (hyperlipidemia) Hypotension Left carotid bruit Leg pain, bilateral Right arm numbness Syncope Tongue cancer Surgical History History of appendectomy History of back surgery X2 History of cataract surgery RDODY History of hernia repair History of surgery FEEDING TUBE PLACED AND REMOVED. Family History Father Family history of heart disease Grandmother Family history of heart disease Family/Other Family history of heart disease Family history of cancer Social History Smoking Status: Former smoker pack-years: 30 alcohol intake: former substance use type: denies use current occupational status: disabled Travel in the last 8 weeks: None housing: house marital status: ROS Obtained: Yes All systems reviewed & no additional complaints except as documented Physical Exam General General appearance: alert and in no apparent distress
--- NOTE | 2022-12-10 21:40 | PC.NURSE ---
COVID SWAB SENT TO LAB
[2022-12-10 21:50] LABS: Coronavirus 19, PCR Not Detected (NotDetected); Influenza A, PCR Not Detected (NotDetected); Influenza B, PCR Not Detected (NotDetected)
--- NOTE | 2022-12-10 21:50 | EXP.HP ---
History of Present Illness *Admission Date: 12/10/22 *Reason for visit:: Fall, Ankle pain, swelling *History of present illness: Mr. York is a 62-year-old male with a past medical history of hypotension on chronic Midodrine, Depression, Hyperlipidemia, BPH. He presents to [facility] due to a fall that he reports that occurred from ground level on 12/08/2022 at a local bank. He reports that he was in the bank lobby when he became dizzy and fell, he denies losing consciousness. He reports that Bank Staff helped him up and he was able to walk on the extremity. He reports that he lives alone and over the 2-day period since the incident that he used a cane and had placed ice on the area. He reports that he took Tylenol for the pain. He reports that the area continued to swell and it became more difficult to walk so he came into the [facility] for evaluation where he was sent to the ER. He had multiple imaging that showed a moderately displaced lateral malleolus fracture on the right and a distal fibula fracture. He was splinted in the ER. Orthopaedics will be consulted to see the patient. He will have a CT of the head without contrast due to complaints of dizziness. The plan of care was discussed with the patient on admission in the ER. The patient verbalized understanding and agreement with the plan of care. [facility] Disclaimer: The information contained in this section may have been updated after the patient was seen, as this information can be updated by other users. Medical History (Updated 12/11/22 @ 17:51 by Julissa Lobato DPM) Abnormal CT scan, chest Abnormal EKG Bilateral leg numbness Carotid artery stenosis Coronary atherosclerosis due to calcified coronary lesion Depression Dizziness H/O tongue cancer History of cataract History of gastroesophageal reflux (GERD) History of stroke HLD (hyperlipidemia) Hypotension Left carotid bruit Leg pain, bilateral Right arm numbness Syncope Tongue cancer Surgical History History of appendectomy History of back surgery History of cataract surgery History of hernia repair History of surgery Family History Father Family history of heart disease Grandmother Family history of heart disease Family/Other Family history of heart disease Family history of cancer Social History (Updated 12/10/22 @ 22:59 by Rosa Maria Wells RN) Smoking Status: Former smoker pack-years: 30 alcohol intake: former substance use type: denies use current occupational status: disabled Travel in the last 8 weeks: None housing: house marital status: Review of Systems Review of Systems Review of systems:: pertinent systems reviewed and negative unless documented below Constitutional Constitutional: Reports system reviewed and no additional complaints, except as documented Eyes Eyes: Reports system reviewed and no additional complaints, except as documented ENT Ears, Nose, Mouth, and Throat: Reports system reviewed and no additional complaints, except as documented and Reports dizziness *Cardiovascular Cardiovascular: Reports system reviewed and no additional complaints, except as documented *Respiratory Respiratory: Reports system reviewed and no additional complaints, except as documented *Gastrointestinal Gastrointestinal: Reports system reviewed and no additional complaints, except as documented *Genitourinary Genitourinary: Reports system reviewed and no additional complaints, except as documented *Musculoskeletal Comments: Right Lower Extremity Pain and Swelling Integumentary/Breasts Skin/Breast: Reports system reviewed and no additional complaints, except as documented *Neurologic Neurologic: Reports dizziness Psychiatric Psychiatric: Reports system reviewed and no additional complaints, except as documented Endocrine Endocrine: Reports system review
[2022-12-10 22:00] VITALS: BP 140/91; PULSE 65; O2SAT 95
--- NOTE | 2022-12-10 22:09 | CT_ITS ---
PROCEDURE INFORMATION: Exam: CT Head Without Contrast Exam date and time: 12/10/2022 10:36 PM Age: 62 years old Clinical indication: Dizziness; Additional info: Vertigo TECHNIQUE: Imaging protocol: Computed tomography of the head without contrast. Radiation optimization: All CT scans at this facility use at least one of these dose optimization techniques: automated exposure control; mA and/or kV adjustment per patient size (includes targeted exams where dose is matched to clinical indication); or iterative reconstruction. REPORTING DATA: Count of CT and Cardiac NM exams in prior 12 months: This patient has received [address] and 0 known cardiac nuclear medicine studies in the 12 months prior to the current study. COMPARISON: US CA CAROTID DUPLEX BI 02/15/2022 9:25 AM FINDINGS: Brain: Normal. No hemorrhage. Unremarkable white matter. No mass effect. Cerebral ventricles: No ventriculomegaly. Paranasal sinuses: There is a moderate-sized retention cyst in the right maxillary sinus. Sinuses are otherwise clear. Mastoid air cells: Visualized mastoid air cells are well aerated. Bones/joints: Unremarkable. No acute fracture. Soft tissues: Unremarkable. IMPRESSION: No acute intracranial abnormality
[2022-12-10 22:54] VITALS: BP 116/71; PULSE 60; RESP 18; TEMP 36.7; O2SAT 94; BMI 26.7
--- NOTE | 2022-12-10 23:02 | PC.NURSE ---
Pt arrived to floor via stretcher @ [id number]
[2022-12-11 04:00] VITALS: BMI 26.7
[2022-12-11 04:44] VITALS: BP 118/72; PULSE 57; RESP 18; TEMP 36.6; O2SAT 95
--- NOTE | 2022-12-11 05:28 | PC.NURSE ---
No acute changes since arriving to the floor. Pt has had no c/o of pain since arriving to the floor. VSS. Remains on room air. Right foot remains elevated on pillows.
[2022-12-11 07:14] LABS: Basophils % 0.7 % (0.1-2.0); Eosinophils # 0.4 K/mm3 (0.0-0.4); Eosinophils % 5.9 % (0.1-12.0); Hematocrit 40.3 % (42.0-52.0); Hemoglobin 12.5 g/dL (14.1-18.0); Lymphocytes # 1.2 K/mm3 (0.7-4.5); Lymphocytes % 19.8 % (10-50); Mean Corpuscular HGB Conc 30.9 g/dL (31.8-35.4); Mean Corpuscular Hemoglobin 32.4 pg (27.0-31.2); Mean Platelet Volume 8.7 fl (7.4-10.4); Monocytes # 0.6 K/mm3 (0.1-1.0); Monocytes % 9.4 % (1.7-9.3); Neutrophils # 3.9 K/mm3 (1.8-7.8); Neutrophils % 64.2 % (37.0-80.0); Platelet Count 219 K/mm3 (142-424); Red Blood Count 3.84 M/mm3 (4.60-6.20); Red Cell Distribution Width 14.3 % (11.5-17.5); White Blood Count 6.1 K/mm3 (4.8-10.8)
[2022-12-11 07:26] LABS: Chloride 103 mmol/L (98-107); Sodium 135 mmol/L (136-145)
[2022-12-11 07:27] LABS: Potassium 4.3 mmoL/L (3.5-5.1)
[2022-12-11 07:29] LABS: Alanine Aminotransferase 10 U/L (12-78); Albumin Level 3.6 g/dl (3.5-5.0); Albumin/Globulin Ratio 1.2 (1.1-1.8); Alkaline Phosphatase 75 U/L (38-126); Anion Gap 6.3 mEq/L (5-15); Aspartate Amino Transferase 16 U/L (17-59); Bilirubin,Total 0.5 mg/dl (0.2-1.3); Blood Urea Nitrogen 17 mg/dl (9-20); Carbon Dioxide 30 mmol/L (22.0-30.0); Creatinine Clearance Estimated 89 mL/min (50-200); Estimated Glomerular Filt Rate 98 ml/min (>60); GFR (African American) 119 ML/MIN (>60); Globulin 3.1 g/dL (1.3-3.2); Total Protein,Serum 6.7 g/dl (6.3-8.2)
[2022-12-11 07:30] LABS: Calcium 8.3 mg/dl (8.4-10.2); Glucose 92 mg/dl (74-100)
--- NOTE | 2022-12-11 07:36 | EXP.ACUTE.PN ---
Subjective *Date: 12/11/22 *Time: 07:36 Interval history: Progress note for/3. Patient did well overnight. Pain stable. Unable to bear weight on right ankle. No nausea or vomiting. Awaiting eval with ortho. Medical Exam Vital signs and Labs for Last 24 Hours: Vital Signs Temp Pulse Resp BP Pulse Ox 12/12/22 07:03 98.3 F 62 18 137/79 95 12/12/22 03:46 98 F 65 16 133/79 95 12/12/22 00:00 97.8 F 70 18 129/70 95 12/11/22 20:00 98.4 F 75 17 128/77 95 12/11/22 15:18 97.8 F 72 18 137/74 95 12/11/22 07:56 17 96 12/11/22 07:39 98.2 F 61 16 130/71 94 L Intake and Output 12/11/22 12/11/22 12/12/22 15:59 23:59 07:59 Intake Total 360 / 600 240 / 600 0 / 0 Output Total 400 / 800 0 / 0 Balance -40 / -200 240 / -200 0 / 0 Intake: Intake, Oral Amount 360 / 600 240 / 600 0 / 0 Output: Output, Urine Amount 400 / 800 0 / 0 Other: Number of Voids 0 2 Number of Unmeasured Voids 1 1 Weight 81.8 kg 84.595 kg Patient Weight 12/12/22 23:59 Weight 84.595 kg I & O for Labs for Last 24 Hours: Intake & Output 12/09/22 12/10/22 12/11/22 12/12/22 23:59 23:59 23:59 23:59 Intake Total 600 / 600 0 / 0 Output Total 800 / 800 0 / 0 Balance -200 / -200 0 / 0 Weight 81.845 kg 81.8 kg 84.595 kg Constitutional: Present no acute distress and chronically ill appearing Head: Present atraumatic and normocephalic ENT: Present normal exam Neck: Present normal inspection Respiratory: Present normal respiratory effort; Absent accessory muscle use, rhonchi, wheezes or crackles Cardiac: Present Reg Rate and Rhythm GI: Present normal bowel sounds; Absent tenderness Extremities: Present tenderness (right ankle swollen, bruised) Skin: Present intact; Absent erythema Neuro: Present Grossly Intact, alert, awake, oriented x 3 and moves all extremities Assessment and Plan *Assessment and plan (1) Ankle fracture, right: Status: Acute Category: Medical Code(s): S82.891A - Other fracture of right lower leg, initial encounter for closed fracture (2) Vertigo: Status: Acute Category: Medical Code(s): R42 - Dizziness and giddiness (3) Chronic hypotension: Status: Acute Category: Medical Code(s): I95.89 - Other hypotension (4) Macrocytic anemia: Status: Acute Category: Medical Code(s): D53.9 - Nutritional anemia, unspecified (5) BPH (benign prostatic hyperplasia): Status: Acute Category: Medical Code(s): N40.0 - Benign prostatic hyperplasia without lower urinary tract symptoms (6) Depression: Status: Acute Category: Medical Code(s): F32.A - Depression, unspecified Plan 62-year-old male with past medical history of chronic hypotension, depression, BPH presents due to an episode of vertigo with fall that resulted in right lower extremity pain and swelling - Ankle Fracture Right Imaging obtained in the ER showed a moderately displaced lateral malleoulus fracture and distal fibula fracture Patient reports a fall due to vertigo at a Bank on 12/08, reports ambulated on the extremity x 2 days with worsening swelling and pain Orthopedics initially consulted, unable to perform surgery to later in the week. Podiatry consulted, appreciate their recommendations and assistance. They are able to take patient to the OR tomorrow. Patient needs surgery and needs to be nonweightbearing at this time. Will need PT OT eval after. Potential to discharge home with home health pending therapy eval Pain stable. - Vertigo - Chronic Hypotension Continue home dose of Midrodrine - Macrocytic Anemia Check B12 - BPH Hold Flomax with vertigo - Depression Continue Citalopram - DVT ppx ASA NPO at midnight full code
[2022-12-11 07:39] VITALS: BP 130/71; PULSE 61; RESP 16; TEMP 36.8; O2SAT 94
[2022-12-11 07:56] VITALS: RESP 17; O2SAT 96
--- NOTE | 2022-12-11 10:28 | EXP.ORTH.CON ---
History of Present Illness *Admission Date: 12/10/22 *Reason for visit:: Right ankle fracture *History of present illness: Mr. York is a 62-year-old male patient admitted to the acute inpatient service after sustaining a mechanical fall on 12/08/2022. He reports that he was at a local bank when he became dizzy and fell, causing him to injure the right ankle. He reports that the staff helped him to his feet and he was able to walk, though he did not seek treatment at that time. He reports that over the weekend he has had increasing difficulty with ambulating so he presented to the [facility]/emergency department yesterday evening for evaluation. Subsequent x-ray demonstrated a displaced fracture of the lateral malleolus. He was placed in a posterior splint and admitted to the inpatient service for orthopedic consultation. This morning the patient is sitting up comfortably in a chair at the bedside. He continues to report right ankle pain but states it is well controlled with as needed pain medication and rest. He states that at baseline he lives alone in his own home and does not ambulate with the use of any walking aids, he states that he has used a cane over the weekend following his injury. No history of any distal tingling/numbness. His past medical history is significant for hypotension, depression, hyperlipidemia, BPH, carotid artery stenosis. He is not on any blood thinners and is a former smoker. He states that he has been drinking water this morning but has not had any thing to eat since yesterday evening. He denies any other symptoms or concerns at this time. [facility] Disclaimer: The information contained in this section may have been updated after the patient was seen, as this information can be updated by other users. Medical History Abnormal CT scan, chest Abnormal EKG Bilateral leg numbness Carotid artery stenosis Coronary atherosclerosis due to calcified coronary lesion Depression Dizziness H/O tongue cancer History of cataract History of gastroesophageal reflux (GERD) History of stroke HLD (hyperlipidemia) Hypotension Left carotid bruit Leg pain, bilateral Right arm numbness Syncope Tongue cancer Surgical History History of appendectomy History of back surgery History of cataract surgery History of hernia repair History of surgery Family History Father Family history of heart disease Grandmother Family history of heart disease Family/Other Family history of heart disease Family history of cancer Social History (Updated 12/10/22 @ 22:59 by Rosa Maria Wells, RN) Smoking Status: Former smoker pack-years: 30 alcohol intake: former substance use type: denies use current occupational status: disabled Travel in the last 8 weeks: None housing: house marital status: Review of Systems ENT Ears, Nose, Mouth, and Throat: Reports dizziness *Neurologic Neurologic: Reports dizziness Meds Home Medications and Allergies Home Medications Medication Instructions Recorded Confirmed Type aspirin 81 mg tablet,delayed 81 mg PO DAILY Heart disease 06/08/22 12/10/22 History release midodrine 10 mg tablet 10 mg PO TID blood pressure support 12/10/22 12/10/22 History tamsulosin 0.4 mg capsule (Flomax) 0.4 mg PO DAILY Prostate disease 12/10/22 12/10/22 History atorvastatin 10 mg tablet 10 mg PO HS Cholesterol 12/11/22 12/11/22 History citalopram 20 mg tablet 20 mg PO DAILY Depression 12/11/22 12/11/22 History New Prescriptions to Start Prescriptions: Allergies Allergy/AdvReac Type Severity Reaction Status Date / Time No Known Allergies Allergy Verified 11/29/22 16:42 Ortho Exam (Inpt) Vital signs and Labs for Last 24 Hours: Temp Pulse Resp BP Pulse Ox 98.2 F 61 17 130/71
--- NOTE | 2022-12-11 10:37 | CT_ITS ---
FINAL REPORT TECHNIQUE: Thin section axial CT images with coronal and sagittal reformats were performed. This study was performed with techniques to keep radiation doses as low as reasonably achievable (ALARA). Individualized dose reduction techniques using automated exposure control or adjustment of mA and/or kV according to the patient''s size were employed. CLINICAL HISTORY: distal fibula fracture FINDINGS: There is an oblique, mildly comminuted and mildly displaced fracture of the distal fibula. The anterior fracture fragment measures 1.9 cm and is anterior displaced approximately 7 mm. No other fracture is identified. The mortise is intact. There are no soft tissue abnormalities. IMPRESSION: Oblique, mildly comminuted and mildly displaced fracture of the distal fibula as above. Reviewed, Interpreted and Dictated by Korey Gonzalez MD Transcribed by Ofelia Moreno Authenticated and . [facility]
--- NOTE | 2022-12-11 13:48 | ECG_ITS ---
APPROVED REPORT Exam: Resting ECG HR:63 bpm ECG Measurements Heart Rate 63 AXES FL 163 P 52 QRSd 93 QRS 9 QT 409 T 7 QTc 417 Conclusion SINUS RHYTHM NORMAL ECG UNCONFIRMED REPORT Electronically signed by : Raffaele Arreguin MD 12/12/2022 21:17:19
--- NOTE | 2022-12-11 14:02 | EXP.CARD.CON ---
History of Present Illness History of Present Illness Consult date: 12/11/22 Requesting physician: Ruddy Finch Consult reason: pre-op evaluation Chief complaint: right ankle pain/fracture after fall Additional Medical History:: 1. Coronary artery calcifications on CT of the chest A. Clinically stable B. Lexiscan Myoview, 08/10/2021, no ischemia with EF 57% C. Echocardiogram, 08/10/2021, mild biatrial enlargement, normal LV size, mild concentric LVH, EF 55% with no regional WMA. Grade 1 DD. Trace MR/TR. 2. History of neck cancer with radiation treatment along with chemotherapy A. Autonomic dysfunction related to radiation therapy causing orthostatic hypotension/chronic dizziness B. Treated with midodrine 3. Carotid artery stenosis, less than 50% bilaterally, 02/2022 A. History of right eye CVA with recommendation for medical management per Dr.'s [place]fall 4. Right hand weakness with severe atrophy of intrinsic muscles 5. Lumbosacral spondylosis with chronic radiculopathy, right leg limping with history of lower back surgery x2 6. Low B12 level, 11/2022 with plans for replacement 7. Right ankle fracture after fall, 12/08/2022 History of present illness: 62-year-old white male with chronic dizziness related to autonomic dysfunction reportedly fell without loss of consciousness on 12/08/2022 at a local bank. Patient did not seek immediate treatment but did come to the emergency department when his ability to walk became more difficult. X-rays showed evidence of a moderately displaced lateral malleolus fracture on the right and a distal fibula fracture. Orthopedics has been consulted with plans for surgical correction. Cardiology consulted for preop evaluation. Patient denies any chest pain, pressure or tightness recently. Chest x-ray unremarkable. EKG and echocardiogram will be ordered [facility] Disclaimer: The information contained in this section may have been updated after the patient was seen, as this information can be updated by other users. Medical History Abnormal CT scan, chest Abnormal EKG Bilateral leg numbness Carotid artery stenosis Coronary atherosclerosis due to calcified coronary lesion Depression Dizziness H/O tongue cancer History of cataract History of gastroesophageal reflux (GERD) History of stroke HLD (hyperlipidemia) Hypotension Left carotid bruit Leg pain, bilateral Right arm numbness Syncope Tongue cancer Surgical History History of appendectomy History of back surgery History of cataract surgery History of hernia repair History of surgery Family History Father Family history of heart disease Grandmother Family history of heart disease Family/Other Family history of heart disease Family history of cancer Social History (Updated 12/10/22 @ 22:59 by Rosa Maria Wells RN) Smoking Status: Former smoker pack-years: 30 alcohol intake: former substance use type: denies use current occupational status: disabled Travel in the last 8 weeks: None housing: house marital status: Review of Systems Review of Systems Review of systems:: pertinent systems reviewed and negative unless documented below ENT Ears, Nose, Mouth, and Throat: Reports dizziness *Cardiovascular Cardiovascular: Denies chest pain and Denies dyspnea *Respiratory Respiratory: Denies cough and Denies dyspnea *Gastrointestinal Gastrointestinal: Denies diarrhea *Musculoskeletal Musculoskeletal: Reports back pain and Reports muscle cramps *Neurologic Neurologic: Reports dizziness Exam Data for Last 24 hours Vital signs and Labs for Last 24 Hours: Temp Pulse Resp BP Pulse Ox 98.2 F 61 17 130/71 96 12/11/22 07:39 12/11/22 07:39 12/11/22 07:56 12/11/22 07:39 12/11/22 07:56 Laboratory Results - last 24 hr 12/10/22 20:08: U
[2022-12-11 15:18] VITALS: BP 137/74; PULSE 72; RESP 18; TEMP 36.6; O2SAT 95
[2022-12-11 15:44] VITALS: BMI 26.6
--- NOTE | 2022-12-11 17:49 | EXP.ORTH.CON ---
History of Present Illness *Admission Date: 12/10/22 *History of present illness: Mr. York is a 62-year-old male patient admitted to the acute inpatient service after sustaining a mechanical fall on 12/08/2022. He reports that he was at a local bank when he became dizzy and fell, causing him to injure the right ankle. He reports that the staff helped him to his feet and he was able to walk, though he did not seek treatment at that time. He reports that over the weekend he has had increasing difficulty with ambulating so he presented to the [facility]/emergency department yesterday evening for evaluation. Subsequent x-ray demonstrated a displaced fracture of the lateral malleolus. He was placed in a posterior splint and admitted to the inpatient service for orthopedic consultation. This morning the patient is sitting up comfortably in a chair at the bedside. He continues to report right ankle pain but states it is well controlled with as needed pain medication and rest. He states that at baseline he lives alone in his own home and does not ambulate with the use of any walking aids, he states that he has used a cane over the weekend following his injury. No history of any distal tingling/numbness. His past medical history is significant for hypotension, depression, hyperlipidemia, BPH, carotid artery stenosis. He is not on any blood thinners and is a former smoker. He states that he has been drinking water this morning but has not had any thing to eat since yesterday evening. He denies any other symptoms or concerns at this time. [facility] Disclaimer: The information contained in this section may have been updated after the patient was seen, as this information can be updated by other users. Medical History (Updated 12/11/22 @ 17:51 by Julissa Lobato DPM) Abnormal CT scan, chest Abnormal EKG Bilateral leg numbness Carotid artery stenosis Coronary atherosclerosis due to calcified coronary lesion Depression Dizziness H/O tongue cancer History of cataract History of gastroesophageal reflux (GERD) History of stroke HLD (hyperlipidemia) Hypotension Left carotid bruit Leg pain, bilateral Right arm numbness Syncope Tongue cancer Surgical History History of appendectomy History of back surgery History of cataract surgery History of hernia repair History of surgery Family History Father Family history of heart disease Grandmother Family history of heart disease Family/Other Family history of heart disease Family history of cancer Social History (Updated 12/10/22 @ 22:59 by Rosa Maria Wells RN) Smoking Status: Former smoker pack-years: 30 alcohol intake: former substance use type: denies use current occupational status: disabled Travel in the last 8 weeks: None housing: house marital status: Review of Systems Review of Systems Review of systems:: pertinent systems reviewed and negative unless documented below Constitutional Constitutional: Reports system reviewed and no additional complaints, except as documented Eyes Eyes: Reports system reviewed and no additional complaints, except as documented ENT Ears, Nose, Mouth, and Throat: Reports system reviewed and no additional complaints, except as documented and Reports dizziness *Cardiovascular Cardiovascular: Reports system reviewed and no additional complaints, except as documented *Respiratory Respiratory: Reports system reviewed and no additional complaints, except as documented *Gastrointestinal Gastrointestinal: Reports system reviewed and no additional complaints, except as documented *Genitourinary Genitourinary: Reports system reviewed and no additional complaints, except as documented *Musculoskeletal Musculoskeletal: Reports system reviewed and no additional complaints, except as documented Integumentary/Breas
--- NOTE | 2022-12-11 17:59 | PC.NURSE ---
Pt has rested quietly throughout the shift with no complaints. He is scheduled for surgery with Dr. Lobato tomorrow around noon. Dr. Lobato has seen the patient and he is agreeable, as Dr. King was unavailable to operate until Sunday. The patient states he does not have any questions or concerns at this time. Consent was reviewed by myself and Dr. Lobato and signed.
[2022-12-11 20:00] VITALS: BP 128/77; PULSE 75; RESP 17; TEMP 36.9; O2SAT 95
[2022-12-12] VITALS (15 sets, daily range): BP systolic 96–137; BP diastolic 44–87; PULSE 62–87; RESP 16–18; TEMP 36.4–43; O2SAT 94–98; BMI 27.6
--- NOTE | 2022-12-12 | XR_ITS ---
FINAL REPORT CLINICAL HISTORY: RT ORIF ANKLE IN OR FINDINGS: FLUORO TIME PROCEDURE: ORIF of right ankle in operating room. FINDINGS: Fluoroscopy time was provided by the radiology department for the clinical service. Two spot films were obtained. Fluoroscopy exposure time: 0.5 minute IMPRESSION: See above Reviewed, Interpreted and Dictated by Korey Goznalez MD Transcribed by Devorah Mendosa Authenticated and [facility]
--- NOTE | 2022-12-12 01:29 | P.PN_ITS ---
Subjective *Date: 12/12/22 *Time: 08:17 Exam Data for Last 24 hours Vital signs and Labs for Last 24 Hours: Temp Pulse Resp BP Pulse Ox 97.8 F 70 18 129/70 95 12/12/22 00:00 12/12/22 00:00 12/12/22 00:00 12/12/22 00:00 12/12/22 00:00 Laboratory Results - last 24 hr 12/11/22 06:55: WBC 6.1, RBC 3.84 L, Hgb 12.5 L, Hct 40.3 L, MCV 105.0 H, MCH 32.4 H, MCHC 30.9 L, RDW 14.3, Plt Count 219, MPV 8.7, Neut % (Auto) 64.2, Lymph % (Auto) 19.8, [place] % (Auto) 9.4 H, Eos % (Auto) 5.9, Baso % (Auto) 0.7, Neut # (Auto) 3.9, Lymph # (Auto) 1.2, [place] # (Auto) 0.6, Eos # (Auto) 0.4, Baso # (Auto) 0.0 12/11/22 06:55: Sodium 135 L, Potassium 4.3, Chloride 103, Carbon Dioxide 30, Anion Gap 6.3, BUN 17, Creatinine 0.80, Estimated Creat Clear 89, Estimated GFR 98, Est GFR ( Amer) 119 D, Glucose 92, Calcium 8.3 L, Total Bilirubin 0.5, AST 16 L, ALT 10 L, Alkaline Phosphatase 75, Total Protein 6.7, Albumin 3.6, Globulin 3.1, Albumin/Globulin Ratio 1.2 I & O for Last 24 hours: Intake & Output 12/09/22 12/10/22 12/11/22 12/12/22 23:59 23:59 23:59 23:59 Intake Total 600 / 600 Output Total 800 / 800 0 / 0 Balance -200 / -200 0 / 0 Weight 81.845 kg 81.8 kg Assessment and Plan *Assessment and plan Plan Mr. York is a 62 year old male with a past medical history of chronic hypotension on midodrine, hyperlipidemia, depression, macrocytic anemia, vitamin b12 deficiency and BPH. He presented after a ground level fall (12/08) with ankle pain. CT revealed a fracture of the right distal fibula. Plan for R ankle ORIF, deltoid ligament repair and possible syndesmosis ORIF. He will need post op PT and DME recommendations Per Orthopedic Surgery, he will need to be non weight bearing on the RLE for approximately 6-12 weeks. He is not open to rehab/SNF. He lives alone but has a sister who can help him. full code npo
--- NOTE | 2022-12-12 07:39 | EXP.CARD.PN ---
Subjective Subjective Date: 12/12/22 Time: 07:39 Principal diagnosis: Preop evaluation Interval history: 62-year-old white male admitted for ankle fracture. Cardiology consulted for preop evaluation. Patient denies any complaints overnight from a cardiac standpoint. Echocardiogram official results pending but preliminary shows preserved ejection fraction. EKG shows sinus rhythm and no changes from previous tracing Exam Data for Last 24 hours Vital signs and Labs for Last 24 Hours: Temp Pulse Resp BP Pulse Ox 98.3 F 62 18 137/79 95 12/12/22 07:03 12/12/22 07:03 12/12/22 07:03 12/12/22 07:03 12/12/22 07:03 I & O for Last 24 hours: Intake & Output 12/09/22 12/10/22 12/11/22 12/12/22 11:59 11:59 11:59 11:59 Intake Total 0 / 0 600 / 600 Output Total 800 / 800 0 / 0 Balance -800 / -800 600 / 600 Weight 180 lb 6.997 oz 186 lb 8 oz Constitutional Constitutional: no acute distress *Routine Respiratory Exam Respiratory: Present CTA bilaterally *Routine Cardiovascular Exam Cardiovascular: Present RRR Progress Note: A&P Assessment and plan (1) Ankle fracture, right: Status: Acute (2) Vertigo: Status: Acute (3) Chronic hypotension: Status: Acute (4) Macrocytic anemia: Status: Acute (5) BPH (benign prostatic hyperplasia): Status: Acute (6) Depression: Status: Acute Assessment and Plan Assessment and Plan for All Diagnoses:: 1.? Chronic hypotension and dizziness, continue midodrine 10 mg 3 times daily 2.? Dizziness with out loss of consciousness resulting in a fall with right ankle fracture.? Plans for surgical correction.? Patient is a low and acceptable risk from a cardiac standpoint to proceed with surgery. 3.? Hyperlipidemia, continue statin therapy 4.? Coronary calcification on chest CT, currently asymptomatic.? Continue aspirin unless need to hold perioperatively for surgery. 5.? Macrocytic anemia with low B12. 6.? History of back surgery with chronic radicular pain
--- NOTE | 2022-12-12 07:59 | EXP.ORTH.PN ---
Subjective *Date: 12/12/22 *Time: 09:13 Interval history: Patient lying in bed alert and oriented x 3. Denies pain. No acute distress noted. Has signed surgical consent for right ankle ORIF, deltoid ligament repair, possible syndesmosis ORIF by today around noon. He is N.P.O. Patient questions and concerns were addressed this morning by podiatry team. Ortho Exam (Inpt) Vital signs and Labs for Last 24 Hours: Temp Pulse Resp BP Pulse Ox 98.3 F 62 18 137/79 95 12/12/22 07:03 12/12/22 07:03 12/12/22 07:03 12/12/22 07:03 12/12/22 07:03 I & O for Labs for Last 24 Hours: Intake & Output 12/09/22 12/10/22 12/11/22 12/12/22 23:59 23:59 23:59 23:59 Intake Total 600 / 600 0 / 0 Output Total 800 / 800 0 / 0 Balance -200 / -200 0 / 0 Weight 180 lb 7 oz 180 lb 5.41 oz 186 lb 8 oz Constitutional: Present no acute distress Head: Present normocephalic Neck: Present normal inspection Respiratory: Present normal respiratory effort and able to speak in complete sentences Cardiac: Present Regular Rate and pedal pulses present GI: Present other (no obesity) Rectal (male): Present deferred (male): Present deferred Extremities: Present other (There is a posterior splint in place. Dressings are clean, dry, intact.) Skin: Present intact, warm and normal turgor Comment:: Skin above and below the splint is intact. Swelling and ecchymosis noted over the exposed foot/toes. Neuro: Present Grossly Intact, oriented x 3 and moves all extremities Comment:: Sensation to light touch is grossly intact throughout. Patient is actively mobilizing the toes. Assessment and Plan *Assessment and plan (1) Tear of deltoid ligament of right ankle: Status: Acute Qualifiers: Encounter type: initial encounter Qualified Code(s): S93.421A - Sprain of deltoid ligament of right ankle, initial encounter Category: Medical Code(s): S93.421A - Sprain of deltoid ligament of right ankle, initial encounter (2) Closed fracture of distal end of right fibula: Status: Acute Qualifiers: Encounter type: initial encounter Fracture morphology: other fracture Qualified Code(s): S82.831A - Other fracture of upper and lower end of right fibula, initial encounter for closed fracture Category: Medical Code(s): S82.831A - Other fracture of upper and lower end of right fibula, initial encounter for closed fracture (3) Ankle fracture, right: Status: Acute Qualifiers: Encounter type: initial encounter Fracture type: closed Qualified Code(s): S82.891A - Other fracture of right lower leg, initial encounter for closed fracture Category: Medical Code(s): S82.891A - Other fracture of right lower leg, initial encounter for closed fracture Plan Diagnostic imaging: X-ray performed at [facility] on 12/10/2022 reviewed along with radiologist report. X-ray of the right ankle demonstrates a displaced distal fibular fracture. Radiologist report is as follows: FINDINGS: Bones/joints: There is a fracture of the lateral malleolus with lateral displacement of the distal fragment by approximally 1/3 shaft width. Distal tibia appears intact. Ankle joint is normally aligned. Moderate plantar spurring of the calcaneus noted. Soft tissues: Moderate soft tissue swelling of the ankle. IMPRESSION: Moderately displaced lateral malleolus fracture 12/12/22: Patient seen and evaluated at bedside by Hillary Clemente APRN, plan discussed with : Fracture Pre-op: By on 12/11/22: Patient is a 62-year-old male with a right distal fibula fracture. Date of injury 12/08/2022. X-rays and CT scan were reviewed and discussed with the patient. Conservative treatment discussed but not recommended due to the unstable nature of the injury. We discussed surgery for ORIF of right fibula fracture as well as stabilizing the deltoid ligament and possible syndesmosis. Al
--- NOTE | 2022-12-12 12:30 | P.PN_ITS ---
[facility] Disclaimer: The information contained in this section may have been updated after the patient was seen, as this information can be updated by other users. Medical History (Updated 12/11/22 @ 17:51 by Julissa Lobato DPM) Abnormal CT scan, chest Abnormal EKG Bilateral leg numbness Carotid artery stenosis Coronary atherosclerosis due to calcified coronary lesion Depression Dizziness H/O tongue cancer History of cataract History of gastroesophageal reflux (GERD) History of stroke HLD (hyperlipidemia) Hypotension Left carotid bruit Leg pain, bilateral Right arm numbness Syncope Tongue cancer Surgical History History of appendectomy History of back surgery History of cataract surgery History of hernia repair History of surgery Family History Father Family history of heart disease Grandmother Family history of heart disease Family/Other Family history of heart disease Family history of cancer Social History (Updated 12/10/22 @ 22:59 by Rosa Maria Wells RN) Smoking Status: Former smoker pack-years: 30 alcohol intake: former substance use type: denies use current occupational status: disabled Travel in the last 8 weeks: None housing: house marital status: [facility] Anesthesia Checklist Patient Identification Patient Identification: Arm Band and Verbal (Name & ) Structural Data Admitted From: Inpatient Planned Operative Procedure/s: Right ORIF Consent for Planned Operative Procedure(s) Verified: Yes Verified Documents: Surgical Consent NPO Status Verified Time NPO: 00:00 Chart Verification Results Verified: None Additional verifications Anesthesia Reactions: No Hx Blood Transfusions: No Blood Transfusion Reaction: No Airway Assessment C-Spine Mobility Assessed: Yes TMJ Mobility Assessed: Yes Dentition: Edentulous Neurological Assessment Level of Consciousness: Awake and Alert Anesthesia Plan Anesthesia Risk discussed: Yes ASA Class: III Anesthesia Type: General w/block
--- NOTE | 2022-12-12 14:34 | XR_ITS ---
FINAL REPORT CLINICAL HISTORY: ORIF R Ankle FINDINGS: RIGHT ANKLE Three views of the right ankle were obtained. An overlying cast is present. A sideplate and screws secure the distal fibula. A small orthopedic screw is seen in the medial malleolus. Fracture fragments are in near anatomic alignment. The mortise is intact. There is no soft tissue abnormality. IMPRESSION: Postoperative changes as above. Reviewed, Interpreted and Dictated by Korey Gonzalez MD Transcribed by Devorah Mendosa Authenticated and . [facility]
--- NOTE | 2022-12-12 14:34 | EXP.OP.NOTE ---
Date of procedure: 12/12/22 Pre-op Diagnosis:: Right ankle fracture (distal fibular fracture, deltoid ligament tear) Post-op Diagnosis:: Same Procedure performed:: Right ankle (distal fibula) ORIF Right deltoid ligament repair Surgeon:: Julissa Lobato DPM [employer]AXI DRIVER SUPERVISOR:: Aubrey Ta Anesthesia: GETA and regional (Right popliteal nerve block) Estimated blood loss (mL): 20 Clinical Note:: Patient is a 62-year-old male with a right distal fibula fracture.? Date of injury 12/08/2022.? X-rays and CT scan were reviewed and discussed with the patient.? Conservative treatment discussed but not recommended due to the unstable nature of the injury. We discussed surgery for ORIF of right fibula fracture as well as stabilizing the deltoid ligament and possible syndesmosis. All risks and benefits were discussed including but not limited to: damage to blood vessels and nerves, bleeding, infection, wound complications, delayed, mal or non-union of bone, post-traumatic arthritis, need for further surgery, implant failure, need for removal of implant, prolonged or permanent swelling of the extremity, prolonged or permanent pain or deformity, CRPS/RSD, DVT/PE, and anesthetic complications including . No guarantees were given. All questions fully answered. The patient verbalized understanding and agreed to proceed with surgery. Consent was obtained. Medical clearance granted by Dr. Finch and cardiology clearance obtained by Dr. Jay. We discussed that he will likely be nonweightbearing on the right lower extremity for approximately 6-12 weeks.? Patient lives at home but has a sister that can help him.? He is reports he does not drive anymore and his sister can drive him to his follow-up appointments.? He does not want to discuss rehab/SNF options. Operative findings:: Spiral oblique distal fibular fracture noted with some comminution. There was a Kai piece of the anterior medial aspect of the distal fibula. Deltoid ligament had partial tear. There was synovitis noted in the ankle joint. Syndesmosis stable, negative external rotation and hook test post reduction. Operative note:: On this date and time patient was deemed an appropriate surgical candidate. Pre-op regional popliteal nerve block performed by anesthesia. With informed consent signed, the patient was taken to the operating theater. The patient was positioned supine. General anesthesia was induced. Tourniquet was applied to the right thigh. The right lower extremity was prepped and draped in normal sterile fashion. IV Ancef given. Right Distal Fibula Fracture ORIF: Attention was directed to the lateral ankle where intra-op fluoroscopy was utilized to francisco anatomical landmarks. A linear incision was made over the lateral ankle. Dissection was carried thru skin and subcutaneous tissue with care taken to maintain surgical hemostasis and safely retract neurovascular structures. Dissection was then carried thru deep fascia to bone. The peroneal tendons were visible posteriorly and laterally, and safely retracted during procedure. The fibula was clearly visualized and the fracture was identified. The bone was gapped. The fracture was noted to be communited. Utilizing a curette the fracture fragments were cleaned. Due to the fragmentation the ankle was unstable. The wound was flushed with copious amounts of normal sterile saline. A curette was used to debride the fibrosis tissue from the fracture site. At this point reduction forceps were utilized compressing the distal spiral oblique fibula fracture. Intraoperative fluoroscopy was utilized to check pre-and post-reduction AP and lateral views. A [facility] anatomic locking plate was applied and temporarily fixed. Again x-ray was used to check the reduction and adequate reduction was noted with alignment of the ankle joint. A 3.5 mm cortical lag screw was inserted across the fracture. 3 locking screws were utilized distally to secure the plate to the fibula. Intraope
--- NOTE | 2022-12-12 15:24 | EXP.DC.SUM ---
General Admission date:: 12/10/22 Discharge date: 12/12/22 HPI HPI HPI: Mr. York is a 62-year-old male patient admitted to the acute inpatient service after sustaining a mechanical fall on 12/08/2022. He reports that he was at a local bank when he became dizzy and fell, causing him to injure the right ankle. He reports that the staff helped him to his feet and he was able to walk, though he did not seek treatment at that time. He reports that over the weekend he has had increasing difficulty with ambulating so he presented to the [facility]/emergency department yesterday evening for evaluation. Subsequent x-ray demonstrated a displaced fracture of the lateral malleolus. He was placed in a posterior splint and admitted to the inpatient service for orthopedic consultation. This morning the patient is sitting up comfortably in a chair at the bedside. He continues to report right ankle pain but states it is well controlled with as needed pain medication and rest. He states that at baseline he lives alone in his own home and does not ambulate with the use of any walking aids, he states that he has used a cane over the weekend following his injury. No history of any distal tingling/numbness. His past medical history is significant for hypotension, depression, hyperlipidemia, BPH, carotid artery stenosis. He is not on any blood thinners and is a former smoker. He states that he has been drinking water this morning but has not had any thing to eat since yesterday evening. He denies any other symptoms or concerns at this time. Hospital Course Hospital Course Hospital Course: Mr. York is a 62 year old male with a past medical history of chronic hypotension on midodrine, hyperlipidemia, depression, macrocytic anemia, vitamin b12 deficiency and BPH. He presented after a ground level fall (12/08) with ankle pain. CT revealed a fracture of the right distal fibula. The patient had ORIF of right distalfibula fracture, right deltoid ligament repair and an amniotic graft was applied over the Kai fracture site prior to closure. Plan for R ankle ORIF, deltoid ligament repair and possible syndesmosis ORIF. He will need post op PT and DME recommendations Per Orthopedic Surgery, he will need to be non weight bearing on the RLE for approximately 6-12 weeks. He is not open to rehab/SNF. He lives alone but has a sister who can help him. Exam Data for Last 24 hours Vital signs and Labs for Last 24 Hours: Temp Pulse Resp BP Pulse Ox 97.6 F 71 16 132/85 95 12/12/22 14:35 12/12/22 14:45 12/12/22 14:45 12/12/22 14:45 12/12/22 14:45 I & O for Last 24 hours: Intake & Output 12/09/22 12/10/22 12/11/22 12/12/22 23:59 23:59 23:59 23:59 Intake Total 600 / 600 0 / 0 Output Total 800 / 800 0 / 0 Balance -200 / -200 0 / 0 Weight 81.845 kg 81.8 kg 84.595 kg Constitutional Constitutional: no acute distress *Routine HEENT Exam Head: Present normocephalic Eye: Present EOMI and PERRL ENT: Present mucous membranes moist *Routine Neck Exam Neck: Present supple; Absent lymphadenopathy *Routine Respiratory Exam Respiratory: Present CTA bilaterally *Routine Cardiovascular Exam Cardiovascular: Present RRR *Routine Abdominal Exam Abdominal: Present soft and normoactive bowel sounds; Absent tenderness *Routine Extremities Exam Comments: R lower extremity is in a splint. wrap is c/d/i *Routine Skin Exam Skin: Present warm; Absent rash *Routine Neurological Exam Neurological: Present alert and oriented X3 Results Additional Comments Additional comments: Discharge/Plan: Patient is to maintain splint clean dry and intact. Polar pack/ice behind the knee and elevate on two pillows. Non weight bearing with walker/rolling knee scooter/wheelchair. Patient will need Rx for Percocet 7.5/325 #30, Zofran 4mg #20 and Motrin 800mg BID #60. Obtain post op films, 3 views right ankle. Follow up in one week with Podiatry
--- NOTE | 2022-12-12 16:10 | HMH.PHAINT1 ---
Pharmacy Intervention Comments: Counseled patient on 3 new medications to START at discharge. Patient expressed understanding of medications' indication, dose, route, frequency, and potential side effects.
--- NOTE | 2022-12-12 17:15 | PC.NURSE ---
Patient became dizziness with PT assessment. States he normally takes midodrine tid to help with his hypotension. Dr. Parsons contacted and order received for one time home dose of midodrine and recheck
--- NOTE | 2022-12-12 17:35 | HMH.PTEV ---
Physical Therapy Evaluation Rehab PT IP Evaluation Start: 12/12/22 14:31 Freq: ONCE Status: Active Protocol: Document 12/12/22 17:09 EASTONLEN (Rec: 12/12/22 17:35 EASTONLEN [id number]) Subjective/History History History Pt is a 62 y/o male who reports he suffered a ground level fall on 12/08/22 at a bank due to low blood pressure and getting dizzy. Pt reports increasing pain, swelling and difficulty walking on the RLE so he presented to [facility] and was sent to the ER. He had multiple imaging that showed a moderately displaced lateral malleolus fracture on the right and a distal fibula fracture. Pt underwent R ankle distal fibula ORIF and deltoid ligament repair on 12/12. Pt is NWB on the RLE. Subjective Subjective Pt reports he lives alone in an apartment with 1 step to enter without HR. Pt reports he has family close by that is able to stay with him and check on him each day. Pt reports prior to hospitalization, he was indpendent with ambulation, all ADLs, cooking and driving. Pt reports he has a rollator walker but his sister has a rolling walker he could use. Pt reports denies pain and states his R foot is still numb from surgery. Pt educated on meaning of NWB status and instructed in transfer training and gait NWB on RLE with RW this date requiring only CGA and verbal cueing for hand placement during transfers. Rehab PT IP Eval Objective Appearance Patient Behavior Appropriate,Cooperative Patient Orientation Person,Place,Birthday Difficulty following instructions none Speech Pattern Clear,Appropriate,Coherent Ambulation Patient Able to Ambulate Yes Ambulation Observation Ambulation Distance (feet) 10
--- NOTE | 2022-12-12 18:28 | PC.NURSE ---
Pt with continued hypotension. Complaint of dizziness upon first arising. Patient states he would still like to go home and will have his sister there with him throughout night. Dr. Parsons notified and agreed that patient could be discharged home tonight with family. Education provided regarding changing position slowly. Patient states understanding of importance of assistance at home
--- NOTE | 2022-12-13 07:12 | CARE MANAGER ---
Received a referral regarding DME equipment. Patient has a walker at home. Ramo Castano RN inquired at [facility] about a knee scooter and insurance does not cover this. The cost is $75 a month to rent. The patient does not want this at this time, but will reach out to [facility] if he changes his mind. No other equipment needs noted. BERNICE Pugh
--- NOTE | 2022-12-13 15:07 | CARE MANAGER ---
Contacted patient related to hospital discharge. He states he is doing well. 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 Denies any questions or concerns. BERNICE Timmons
--- NOTE | 2022-12-18 08:10 | EXP.ANES.II ---
[facility] Anesthesia Record Part II Anesthesia Record Part II Discharge Time: 14:45 Destination: Second Floor PACU nurse assessment reviewed?: Yes Patient Condition:: Good Anesthesia Complications:: None Swallowing reflex intact?: Yes Cyanosis?: No Blood Pressure: 132/85 Pulse Rate: 71 Temperature: 97.6 F Mental Status: Alert & Oriented Pain level:: 0 Nausea and/or vomitting:: None Intake, IV Amount: 0
[2022-12-18 08:11] VITALS: BP 132/85; PULSE 71; TEMP 36.4
== END 2022-12-12 18:28 | disposition home or self-care (01) ==
LOC: UTC 18:52 → ER 19:50 → 2ND 23:31
PROVIDERS: Nurse Practitioner Family; Podiatrist; Admitting Provider Internal Medicine Adolescent Medicine; Emergency Provider Emergency Medicine; PCP Emergency Medicine; Visit Provider Internal Medicine Adolescent Medicine
DX: S82.61XA Displaced fracture of lateral malleolus of right fibula, initial encounter for closed fracture (principal); S93.421A Sprain of deltoid ligament of right ankle, initial encounter; S82.431A Displaced oblique fracture of shaft of right fibula, initial encounter for closed fracture; W01.0XXA Fall on same level from slipping, tripping and stumbling without subsequent striking against object, initial encounter; Y92.510 Bank as the place of occurrence of the external cause; I95.89 Other hypotension; D53.9 Nutritional anemia, unspecified; I65.23 Occlusion and stenosis of bilateral carotid arteries; I25.10 Atherosclerotic heart disease of native coronary artery without angina pectoris; I25.84 Coronary atherosclerosis due to calcified coronary lesion; M54.16 Radiculopathy, lumbar region; I10 Essential (primary) hypertension; Z87.891 Personal history of nicotine dependence
CPT/HCPCS: 27695; 27792; G0378; 36415; 70450; 71045; 72170; 73590; 73600; 73610; 73630; 73700; 76000; 80053; 81001; 85025; 93005; 93306; 97162; 99285; C1713; C1776; C9803; J2405; Q4211; U0003; U0005

== ENCOUNTER → 2022-12-15 10:07 | Outpatient (CLI) | payer MEDICARE, SELFPAY ==
--- NOTE | 2022-12-15 10:07 | CT_ITS ---
FINAL REPORT TECHNIQUE: Postcontrast axial images through the abdomen and pelvis were performed. This study was performed with techniques to keep radiation doses as low as reasonably achievable, (ALARA). Individualized dose reduction techniques using automated exposure control or adjustment of mA and/or kV according to the patient's size were employed. CLINICAL HISTORY: abdominal pain COMPARISON: 05/10/2022 FINDINGS: Abdomen: There are bibasilar ground-glass opacities, right greater than left, probably due to acute pneumonitis. The liver parenchyma is homogeneous. The gallbladder is present. There are calcified granulomas in the spleen. The adrenals are normal. The pancreas is unremarkable. There are benign-appearing cysts in left kidney measuring up to 3.8 cm in diameter, stable. The right kidney is unremarkable. Streak artifact is seen from posterior fusion hardware bridging the lower lumbar spine. Again identified is a lucent focus in the posterior right iliac, favored to represent bone graft harvest site. Finding is stable is compared to previous. The aorta is normal in caliber. No free fluid or adenopathy is identified. No findings for mechanical bowel obstruction are identified. Pelvis: The appendix is not identified. The urinary bladder is unremarkable. No free fluid, free air, abscess or adenopathy is identified. IMPRESSION: Left renal cysts, stable. Focus in the right iliac, favor to represent bone graft harvest site, stable. Acute bibasilar pneumonitis. Reviewed, Interpreted and Dictated by Korey Gonzalez MD Transcribed by Nessa Verde Authenticated and [facility]
== END ==
PROVIDERS: PCP Emergency Medicine; Visit Provider Emergency Medicine
DX: R10.9 Unspecified abdominal pain (principal)
CPT/HCPCS: 74177; Q9967

== ENCOUNTER → 2022-12-19 14:27 | Outpatient (CLI) | payer MEDICARE, SELFPAY ==
[2022-12-19 14:44] LABS: Vitamin B12 > 1000 pg/mL (239-931)
[2022-12-21 16:33] LABS: Antiparietal Cell Antibody 32.3 Units (0.0-20.0)
[2022-12-22 16:21] LABS: Intrinsic Factor Abs, Serum 10.3 AU/mL (0.0-1.1)
== END ==
PROVIDERS: Physician Assistant; PCP Emergency Medicine; Visit Provider Emergency Medicine
DX: E53.8 Deficiency of other specified B group vitamins (principal)
CPT/HCPCS: 82607; 83516; 86340

== ENCOUNTER → 2022-12-20 12:20 | Outpatient (CLI) | payer MEDICARE, SELFPAY ==
[2022-12-21 16:33] LABS: Antiparietal Cell Antibody 25.2 Units (0.0-20.0)
== END ==
PROVIDERS: PCP Emergency Medicine; Visit Provider Specialist
DX: E53.8 Deficiency of other specified B group vitamins (principal)
CPT/HCPCS: 36415; 83516; 86340

== ENCOUNTER → 2023-01-11 10:18 | Outpatient (CLI) | payer MEDICARE, SELFPAY ==
--- NOTE | 2023-01-11 10:30 | XR_ITS ---
FINAL REPORT CLINICAL HISTORY: Ankle Pain fall december 08 sx 12/12/22 COMPARISON: 12/12/2022 FINDINGS: RIGHT ANKLE 3 views of the right ankle were obtained. Overlying cast is been removed. Sideplate and screws are seen securing the fracture of the distal fibula. Fracture fragments are unchanged in position. There is an orthopedic anchor in the medial malleolus. The mortise is intact. Visualized joint spaces are normally aligned. Moderate soft tissue is seen about the ankle. There is a moderate plantar spur. IMPRESSION: Postoperative changes as above without acute bony abnormality. Reviewed, Interpreted and Dictated by Kroey Gonzalez MD Transcribed by Amanda Ring Authenticated and [facility]
== END ==
PROVIDERS: PCP Emergency Medicine; Visit Provider Podiatrist
DX: M25.571 Pain in right ankle and joints of right foot (principal)
CPT/HCPCS: 73610

== ENCOUNTER → 2023-02-01 10:54 | Outpatient (CLI) | payer MEDICARE, SELFPAY ==
--- NOTE | 2023-02-01 10:58 | XR_ITS ---
FINAL REPORT CLINICAL HISTORY: Right ankle pain, postoperative FINDINGS: Three views show postoperative changes from ORIF of the distal fibula and medial malleolus. There is new callus formation along the distal fibular fracture which is minimally displaced. There has been interval hardware placement. IMPRESSION: Postoperative changes with healing fractures. Reviewed, Interpreted and Dictated by Artur Stahl MD Transcribed by Ofelia Moreno Authenticated and . [facility]
== END ==
LOC: RAD 10:55
PROVIDERS: PCP Emergency Medicine; Visit Provider Podiatrist
DX: Z98.890 Other specified postprocedural states (principal); M25.571 Pain in right ankle and joints of right foot
CPT/HCPCS: 73610

== ENCOUNTER 2023-06-18 18:16 | Emergency (ER) | payer MEDICARE, SELFPAY ==
[2023-06-18 18:17] VITALS: BP 124/86; PULSE 83; RESP 18; TEMP 37.2; O2SAT 98; BMI 24.6
--- NOTE | 2023-06-18 18:41 | CT_ITS ---
PROCEDURE INFORMATION: Exam: CT Head Without Contrast Exam date and time: 06/18/2023 7:14 PM Age: 63 years old Clinical indication: Injury or trauma; Fall; Blunt trauma (contusions or hematomas); Consciousness not specified; Additional info: Fall, head trauma, unknown downtime after fall. TECHNIQUE: Imaging protocol: Computed tomography of the head without contrast. Radiation optimization: All CT scans at this facility use at least one of these dose optimization techniques: automated exposure control; mA and/or kV adjustment per patient size (includes targeted exams where dose is matched to clinical indication); or iterative reconstruction. REPORTING DATA: Count of CT and Cardiac NM exams in prior 12 months: This patient has received 3 known CTs and 0 known cardiac nuclear medicine studies in the 12 months prior to the current study. COMPARISON: CT HEAD/BRAIN WO CON 12/10/2022 10:36 PM FINDINGS: Brain: A large intraparenchymal hematoma noted in the anterior inferior medial left frontal lobe measuring 6.8 x 2.6 x 6.3 cm with surrounding adjacent vasogenic edema. A component of the hematoma appears to extend between the frontal horns of the lateral ventricles. There may be mild intra ventricular extension into the left frontal horn region. Associated effacement of the adjacent subarachnoid spaces in the frontal horn of the left lateral ventricle. Mild vthu-lr-osjwr midline shift up to 6 mm is noted. Perimesencephalic cisterns are preserved. Atrophy and chronic small-vessel ischemic changes and mild vascular calcifications redemonstrated. Cerebral ventricles: See Brain finding. Paranasal sinuses: Visualized sinuses are unremarkable. No fluid levels. Mastoid air cells: Visualized mastoid air cells are well aerated. Bones/joints: Unremarkable. No acute fracture. Soft tissues: Unremarkable. IMPRESSION: A large 6.8 cm left frontal lobe region intraparenchymal hematoma with associated vasogenic edema noted. Extension between the frontal horns of the lateral ventricles noted. Possible mild extension into the frontal horn of the lateral ventricle may also be present. Associated local mass effect and mild vrhx-vl-nlhkf midline shift. Possibilities for the hemorrhage might include a ruptured occult cerebral aneurysm versus a hypertensive hemorrhagic CVA versus a occult hemorrhagic vascular lesion or tumor.
--- NOTE | 2023-06-18 18:41 | XR_ITS ---
PROCEDURE INFORMATION: Exam: XR Chest Exam date and time: 06/18/2023 7:15 PM Age: 63 years old Clinical indication: Injury or trauma; Fall; Blunt trauma (contusions or hematomas); Additional info: Fall, AMS TECHNIQUE: Imaging protocol: Radiologic exam of the chest. Views: 1 view. COMPARISON: CR XR CHEST AP 12/10/2022 8:29 PM FINDINGS: Lungs: Unremarkable. No consolidation. Pleural spaces: Unremarkable. No pleural effusion. No pneumothorax. Heart/Mediastinum: Unremarkable. No cardiomegaly. Bones/joints: Unremarkable. IMPRESSION: No acute findings.
--- NOTE | 2023-06-18 18:41 | CT_ITS ---
PROCEDURE INFORMATION: Exam: CT Cervical Spine Without Contrast Exam date and time: 06/18/2023 7:17 PM Age: 63 years old Clinical indication: Injury or trauma; Fall; Blunt trauma; Additional info: Fall, unknown down time, confusion TECHNIQUE: Imaging protocol: Computed tomography of the cervical spine without contrast. Radiation optimization: All CT scans at this facility use at least one of these dose optimization techniques: automated exposure control; mA and/or kV adjustment per patient size (includes targeted exams where dose is matched to clinical indication); or iterative reconstruction. REPORTING DATA: Count of CT and Cardiac NM exams in prior 12 months: This patient has received 3 known CTs and 0 known cardiac nuclear medicine studies in the 12 months prior to the current study. COMPARISON: CT HEAD/BRAIN WO CON 06/18/2023 7:14 PM FINDINGS: Bones/joints: Advanced severe multilevel degenerative disc disease involving essentially all cervical levels most pronounced at C3-C4 through C6-C7 levels identified. Mild degenerative disc disease noted at the C2-C3 level. Fapw-ux-djsdblyc degenerative related anterolisthesis at C2-C3 with reversal of lordosis thought related to the advanced facet arthritic changes and increased mobility related to the severe degenerative changes more inferiorly. Vertebral body heights are intact. No acute fracture. Moderate central canal narrowing noted at C2-C3. Bulging disc spur complexes at C3-C4 through C6-C7 with qlgbylpl-da-nujwck central canal narrowing at C3-C4 and C6-C7 with possible cord compression. Moderate central canal narrowing at C4-C5 and C5-C6. Multilevel zjhkjvlu-qp-htwkbx and moderate foramina narrowing noted most pronounced at C3-C4, C4-C5, and C6-C7. Lungs: Lung apices are normal. Soft tissues: Unremarkable. IMPRESSION: 1. No acute fracture. 2. Severe multilevel degenerative changes with multilevel xaojiuma-mz-pcrlsq and moderate central canal narrowing most pronounced at C3-C4 and C6-C7 with associated presumed cord compression. Consider further assessment with MRI of the C-spine.
[2023-06-18 18:52] LABS: VBG Base Excess 0.9 mmol/L (-2.4-2.3); VBG HCO3 26.3 mmol/L (23-30); VBG PCO2 47.1 mmol/L (35-51); VBG PH 7.36 mmol/L (7.31-7.41); VBG PO2 42.3 mmol/L (28-40); VBG Total CO2 27.7 mmol/L (23-27)
--- NOTE | 2023-06-18 18:54 | ECG_ITS ---
APPROVED REPORT Exam: Resting ECG HR:84 bpm ECG Measurements Heart Rate 84 AXES MT 116 P 72 QRSd 86 QRS 28 QT 371 T 100 QTc 412 Conclusion SINUS RHYTHM WITH SHORT MT INTERVAL MODERATE T-WAVE ABNORMALITY, CONSIDER LATERAL ISCHEMIA [-0.1+ mV T-WAVE IN I/aVL/V5/V6] ABNORMAL ECG UNCONFIRMED REPORT Electronically signed by : Raffaele Arreguin MD 06/18/2023 19:35:09
[2023-06-18 18:58] LABS: POC Glucose,Bedside 121 (70-110)
[2023-06-18 19:04] LABS: Eosinophils % 0.2 % (0.1-12.0); Hematocrit 51.1 % (42.0-52.0); Hemoglobin 16.3 g/dL (14.1-18.0); Lymphocytes # 0.9 K/mm3 (0.7-4.5); Lymphocytes % 7.4 % (10-50); Mean Corpuscular Hemoglobin 31.9 pg (27.0-31.2); Mean Corpuscular Volume 99.8 fl (80-94); Mean Platelet Volume 9.6 fl (7.4-10.4); Monocytes # 0.8 K/mm3 (0.1-1.0); Monocytes % 6.2 % (1.7-9.3); Neutrophils # 10.7 K/mm3 (1.8-7.8); Neutrophils % 86.2 % (37.0-80.0); Platelet Count 231 K/mm3 (142-424); Red Blood Count 5.12 M/mm3 (4.60-6.20); Red Cell Distribution Width 14.4 % (11.5-17.5); White Blood Count 12.4 K/mm3 (4.8-10.8)
[2023-06-18 19:05] LABS: Chloride 106 mmol/L (98-107); Potassium 3.6 mmoL/L (3.5-5.1); Sodium 143 mmol/L (136-145)
[2023-06-18 19:06] LABS: MANUAL DIFFERENTIAL MANUAL DIFFERENTIAL (MANUAL DIFF)
[2023-06-18 19:07] LABS: Alanine Aminotransferase 26 U/L (12-78); Aspartate Amino Transferase 33 U/L (17-59); Blood Urea Nitrogen 57 mg/dl (9-20); Creatinine Clearance Estimated 74 mL/min (50-200); Estimated Glomerular Filt Rate 68 ml/min (>60); GFR (African American) 82 ML/MIN (>60)
[2023-06-18 19:08] LABS: Albumin Level 4.2 g/dl (3.5-5.0); Alkaline Phosphatase 101 U/L (38-126); Anion Gap 12.6 mEq/L (5-15); Bilirubin,Total 1.9 mg/dl (0.2-1.3); Calcium 9.5 mg/dl (8.4-10.2); Carbon Dioxide 28 mmol/L (22.0-30.0); Creatine Kinase 125 U/L (55-170); Globulin 4.1 g/dL (1.3-3.2); Glucose 118 mg/dl (74-100); Lipase 57 U/L (23-300); Salicylate < 1.0 mg/dL (2.0-20.0); Total Protein,Serum 8.3 g/dl (6.3-8.2)
[2023-06-18 19:10] LABS: Lactic Acid 1.5 mmol/L (0.7-2.1)
[2023-06-18 19:11] LABS: Activated Partial Thrombo Time 27.2 seconds (22.8-30.6); Ethyl Alcohol < 10 mg/dl (0-10); INR 1.02 (0.9-1.1)
--- NOTE | 2023-06-18 19:12 | HMH.EDGENADL ---
Discharge Plan Disposition Patient Disposition: Home, Self-Care Condition: Critical Chief Complaint: Weakness Prescriptions Prescriptions: No Action sodium chloride 1,000 mg tablet,soluble 1,000 mg PO TID pyridostigmine bromide [Mestinon] 60 mg tablet 60 mg PO BID MDD 120 mg Qty: 60 6RF Rx Instructions: 1 tablet twice daily midodrine 10 mg tablet 10 mg PO TID Qty: 90 5RF Rx Instructions: do not give last dose of day after 6PM or within 4 hrs of bedtime citalopram 20 mg tablet 20 mg PO DAILY atorvastatin 10 mg tablet 10 mg PO HS Rx Instructions: TAKE 1 TABLET BY MOUTH AT BEDTIME aspirin 81 mg tablet,delayed release (DR/EC) 81 mg PO DAILY Referrals Follow up/Referrals: Robinson Whatley MD [Primary Care Provider] - See instructions Clinical Impressions Clinical Impression: Intraparenchymal hemorrhage of brain, Intraventricular hemorrhage, AMS (altered mental status) Stand Alone Forms Stand Alone Forms: Transfer Record - ED Discharge ED Provider: Serge Don General Adult HPI General Chief complaint: Weakness Stated complaint: Fall Time Seen by Provider: 06/18/23 18:21 Mode of Arrival: EMS Source of Information: Patient Limitations: No Limitations Description of Symptoms (Recalled from ER Triage Doc. by RN): pt was found down by bed by a family member unknown down time, ems got him to the couch and pt had no complaints of injuries, pt went to stand up and almost fell again so patient is more weaker than normal. per ems patient smells strongly of urine. pt is alert and oriented x2 History of Present Illness HPI narrative: 63-year-old male history of hypertension, hyperlipidemia, CAD presenting with confusion after being found down. Per family, patient was found down after unknown downtime. EMS was able to help him up to ambulate. Patient has no complaints of pain. Because of weakness and almost having another fall, EMS was called. Patient was brought to the ER. On arrival, patient alert and oriented to person, place, time, and situation. Not complaining of nausea, vomiting, chest pain, shortness of breath, pain anywhere, or any other complaints. Related Data Home Medications Medication Instructions Recorded Confirmed aspirin 81 mg tablet,delayed 81 mg PO DAILY Heart disease 06/08/22 06/12/23 release atorvastatin 10 mg tablet 10 mg PO HS Cholesterol 12/11/22 06/12/23 citalopram 20 mg tablet 20 mg PO DAILY Depression 12/11/22 06/12/23 sodium chloride 1,000 mg soluble 1,000 mg PO TID 12/25/22 06/12/23 tablet Previous Rx's Medication Instructions Recorded pyridostigmine bromide 60 mg 60 mg PO BID carotid sinus 04/11/23 tablet (Mestinon) syndrome, weakness #60 tabs midodrine 10 mg tablet 10 mg PO TID blood pressure 05/21/23 support #90 tabs Allergies Allergy/AdvReac Type Severity Reaction Status Date / Time No Known Allergies Allergy Verified 06/12/23 10:05 [facility] Disclaimer: The information contained in this section may have been updated after the patient was seen, as this information can be updated by other users. Medical History Abnormal CT scan, chest Abnormal EKG Bilateral leg numbness Carotid artery stenosis Coronary atherosclerosis due to calcified coronary lesion Calcification on chest CT. Depression Dizziness H/O tongue cancer History of cataract History of gastroesophageal reflux (GERD) History of stroke RIGHT EYE HLD (hyperlipidemia) Hypotension Left carotid bruit Leg pain, bilateral Right arm numbness Syncope No further syncope but still dizzy with sudden changes in position. Currently on salt tablets, midodrine, SSRI, Mestinon 60 mg po bid. Tongue cancer Surgical History History of appendectomy History of back surgery X2 History of cataract surgery RODDY History of hernia repair History of penn
--- NOTE | 2023-06-18 19:17 | PC.NURSE ---
patient to radiology
[2023-06-18 19:23] LABS: Lymphocytes % 10 % (10-50); Macrocytosis 1+; Monocytes % 2 % (2-9); Neutrophils % 87 % (42-76); Platelet Estimate Normal; Total Cells Counted 100
[2023-06-18 19:24] LABS: Troponin I 0.01 ng/ml (0.00-0.034)
[2023-06-18 19:28] LABS: T4 (Thyroxine) 7.5 ug/dl (5.53-11.0)
[2023-06-18 19:42] LABS: Thyroid Stimulating Hormone 2.61 uIU/mL (0.465-4.68)
[2023-06-18 19:44] LABS: Microscopic, Urine URINE MICROSCOPIC (MICROSCOPIC)
--- NOTE | 2023-06-18 19:52 | PC.NURSE ---
[facility] in route; 25 min ETA
--- NOTE | 2023-06-18 19:59 | PC.NURSE ---
Called [facility] about transferring the pt. Dr Don speaking to transfer attending Dr. Schmid. CR
[2023-06-18 20:01] LABS: NT Pro Brain Natriuretic Pep. 82.4 pg/mL (0-125)
--- NOTE | 2023-06-18 20:10 | PC.NURSE ---
Called report to arcelia GUEVARA RN, is accepting md
--- NOTE | 2023-06-18 20:10 | PC.NURSE ---
Have attempted to reach patient's son. VM is full
[2023-06-18 20:14] LABS: Appearance,Urine CLEAR (Clear); Blood, Urine 1+ (Negative); Color,Urine AMBER (Yellow); Glucose,Urine (UA) Negative (Negative); Ketones,Urine TRACE (Negative); Leukocyte Esterase,Urine Negative (Negative); Nitrate,Urine Negative (Negative); PH,Urine 5.5 (5.0-8.5); Protein,Urine 2+ (Negative); Specific Gravity, Urine >= 1.030 (1.005-1.030)
--- NOTE | 2023-06-18 20:17 | PC.NURSE ---
Updated patient's son over the phone and let him know his father is going to be flying to [facility].
--- NOTE | 2023-06-18 20:20 | PC.NURSE ---
[facility] here
[2023-06-18 20:26] LABS: Bilirubin,Urine 2+ (Negative); WBC,Urine Occasional #/hpf (0-3)
--- NOTE | 2023-06-18 20:26 | PC.NURSE ---
Our Cardene gtt not started per [facility]'s request. They will be starting their own so they can place on their pump
[2023-06-18 20:27] LABS: Bacteria,Urine Trace /lpf; RBC,Urine Occasional #/hpf (0-3)
[2023-06-18 20:28] LABS: Barbiturates Screen,Urine Negative ng/ml (<200); Benzodiazepines Screen,Urine Negative ng/ml (<200)
[2023-06-18 20:29] LABS: Amphetamine/Metha Screen,Urine Negative ng/ml (<1000)
[2023-06-18 20:30] VITALS: BP 169/100; PULSE 78; RESP 21; TEMP 36.7; O2SAT 96
[2023-06-18 20:30] LABS: Cannabinoid Screen,Urine Negative ng/ml (<50); Methadone Screen,Urine Negative ng/ml (<300)
[2023-06-18 20:31] LABS: Cocaine Screen,Urine Negative ng/ml (<300); Opiate Screen,Urine Negative ng/ml (<300)
[2023-06-18 20:32] LABS: Phencyclidine Screen,Urine Negative ng/ml (<25)
--- NOTE | 2023-06-18 20:33 | PC.NURSE ---
Gave report to Lara QUEEN with [facility], advised per ER MD to start on cardene drip to control BP while en route, [facility] verbalized understadning and stated they would start it with their equipment
== END 2023-06-18 20:35 | disposition other institution (70) ==
PROVIDERS: Emergency Provider Emergency Medicine; PCP Emergency Medicine
DX: I61.8 Other nontraumatic intracerebral hemorrhage (principal); I61.5 Nontraumatic intracerebral hemorrhage, intraventricular; R41.82 Altered mental status, unspecified; R94.31 Abnormal electrocardiogram [ECG] [EKG]; I25.10 Atherosclerotic heart disease of native coronary artery without angina pectoris; I11.9 Hypertensive heart disease without heart failure; E78.5 Hyperlipidemia, unspecified
CPT/HCPCS: 70450; 71045; 72125; 80053; 80305; 80329; 81001; 82550; 82803; 82962; 83605; 83690; 83880; 84436; 84443; 84484; 85007; 85025; 85610; 85730; 87040; 93005; 96361; 96374; 99291

== ENCOUNTER 2023-09-22 23:48 | Emergency (ER) | payer MEDICARE, SELFPAY ==
[2023-09-22 23:48] VITALS: BP 110/73; PULSE 84; RESP 18; TEMP 37; O2SAT 96; BMI 25.1
[2023-09-23] VITALS (8 sets, daily range): BP systolic 92–119; BP diastolic 53–69; PULSE 69–82; RESP 16; TEMP 36.7; O2SAT 90–95
--- NOTE | 2023-09-23 | PC.NURSE ---
spoke with son who was concerned with father. stated he wasn't told anything but that he was being 'rushed to the hospital'. with patient's permission, discussion included establishing a complaint and evaluating for need.
--- NOTE | 2023-09-23 00:01 | XR_ITS ---
PROCEDURE INFORMATION: Exam: XR Chest Exam date and time: 09/23/2023 12:02 AM Age: 63 years old Clinical indication: Other: Diaphoresis TECHNIQUE: Imaging protocol: Radiologic exam of the chest. Views: 1 view. COMPARISON: CR XR CHEST PORTABLE 06/18/2023 7:15 PM FINDINGS: Lungs: Normal. Pleural spaces: Normal No pleural effusion. No pneumothorax. Heart/Mediastinum: Normal. No cardiomegaly. Bones/joints: Unremarkable. IMPRESSION: No acute findings.
--- NOTE | 2023-09-23 00:39 | ECG_ITS ---
APPROVED REPORT Exam: Resting ECG HR:83 bpm ECG Measurements Heart Rate 83 AXES OH 158 P 43 QRSd 92 QRS 18 QT 348 T 34 QTc 387 Conclusion SINUS RHYTHM NORMAL ECG UNCONFIRMED REPORT Electronically signed by : Raffaele Arreguin MD 09/23/2023 15:10:54
--- NOTE | 2023-09-23 00:47 | PC.NURSE ---
Patient reports he is unable to provide urine sample at this time.
[2023-09-23 00:49] LABS: Influenza A, PCR Not Detected (NotDetected); Influenza B, PCR Not Detected (NotDetected)
[2023-09-23 00:51] LABS: Basophils # 0.1 K/mm3 (0-0.2); Basophils % 0.9 % (0.1-2.0); Eosinophils % 0.4 % (0.1-12.0); Hematocrit 40.6 % (42.0-52.0); Hemoglobin 13.2 g/dL (14.1-18.0); Lymphocytes # 0.8 K/mm3 (0.7-4.5); Lymphocytes % 11.3 % (10-50); Mean Corpuscular HGB Conc 32.6 g/dL (31.8-35.4); Mean Corpuscular Hemoglobin 33.2 pg (27.0-31.2); Mean Platelet Volume 9.6 fl (7.4-10.4); Monocytes # 0.7 K/mm3 (0.1-1.0); Neutrophils # 5.5 K/mm3 (1.8-7.8); Neutrophils % 77.4 % (37.0-80.0); Platelet Count 215 K/mm3 (142-424); Red Blood Count 3.98 M/mm3 (4.60-6.20); Red Cell Distribution Width 15.5 % (11.5-17.5); White Blood Count 7.1 K/mm3 (4.8-10.8)
[2023-09-23 00:59] LABS: Alanine Aminotransferase 15 U/L (12-78); Albumin Level 3.7 g/dl (3.5-5.0); Albumin/Globulin Ratio 1.2 (1.1-1.8); Alkaline Phosphatase 92 U/L (38-126); Anion Gap 9.3 mEq/L (5-15); Aspartate Amino Transferase 25 U/L (17-59); Bilirubin,Total 0.3 mg/dl (0.2-1.3); Blood Urea Nitrogen 22 mg/dl (9-20); Calcium 8.1 mg/dl (8.4-10.2); Carbon Dioxide 29 mmol/L (22.0-30.0); Chloride 100 mmol/L (98-107); Creatinine Clearance Estimated 82 mL/min (50-200); Estimated Glomerular Filt Rate 98 ml/min (>60); GFR (African American) 118 ML/MIN (>60); Globulin 3.1 g/dL (1.3-3.2); Glucose 100 mg/dl (74-100); Potassium 4.3 mmoL/L (3.5-5.1); Sodium 134 mmol/L (136-145); Total Protein,Serum 6.8 g/dl (6.3-8.2)
[2023-09-23 01:13] LABS: Coronavirus 19, PCR Detected (NotDetected)
[2023-09-23 01:22] LABS: Troponin I < 0.01 ng/ml (0.00-0.034)
--- NOTE | 2023-09-23 01:45 | ED_ITS ---
Discharge Plan Disposition Patient Disposition: Home, Self-Care Condition: Good Prescriptions Prescriptions: No Action citalopram 20 mg tablet 20 mg PO DAILY Qty: 90 1RF levetiracetam [Keppra] 100 mg/mL solution 500 mg PO ONCE Qty: 200 2RF midodrine 10 mg tablet 10 mg PO BID Qty: 60 5RF Rx Instructions: do not give last dose of day after 6PM or within 4 hrs of bedtime pyridostigmine bromide [Mestinon] 60 mg tablet 60 mg PO BID MDD 120 mg Qty: 60 6RF Rx Instructions: 1 tablet twice daily lansoprazole 30 mg tablet,disintegrat, delay rel 30 mg PO DAILY 90 Days Qty: 90 1RF atorvastatin 20 mg/5 mL (4 mg/mL) suspension 40 mg PO DAILY Qty: 150 2RF Rx Instructions: administer on an empty stomach, at least 1 hour before or 2 hours after food/meal(s) methylphenidate HCl 10 mg tablet 10 mg PO DAILY Qty: 90 0RF Referrals Follow up/Referrals: Provider,Referral, MD [Primary Care Provider] - See instructions Activity Restrictions/Add. Instructions Additional Instructions/Restrictions: You were evaluated in the emergency department today. You tested positive for COVID-19. Take Tylenol at home as needed for pain and fevers. Hydrate is much as possible. Follow-up with your primary care provider over the next week for reassessment. Return to the emergency department for new or worsening symptoms. Clinical Impressions Clinical Impression: COVID-19 Discharge ED Provider: Kelly Guerrier General Adult HPI General Chief complaint: Recheck/Abnormal Lab/Rx Stated complaint: weakness Time Seen by Provider: 09/22/23 23:51 Mode of Arrival: EMS Source of Information: Patient and EMS Limitations: No Limitations Description of Symptoms (Recalled from ER Triage Doc. by RN): EMS reports called out to patient's residence by family after reportedly waking up from a nap different Patient is alert and oriented x 4 upon arrival and denies any complaints at this time. 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 Patient reports that his family takes care of him overreacted. He denies any concerns or complaints. He states that he woke up sweating from his nap and feeling hotter than usual, he denies any other concerns, such as fevers, chills, chest pain, shortness of breath, pain anywhere, nausea, vomiting, changes bowel movements, or other concerns. He notes that he has been tolerating his feeds without difficulty. No other concerns noted currently. Related Data Previous Rx's Medication Instructions Recorded citalopram 20 mg tablet 20 mg PO DAILY Depression #90 tabs 08/29/23 lansoprazole 30 mg delayed 30 mg PO DAILY 90 days #90 tabs 08/29/23 release,disintegrating tablet levetiracetam 100 mg/mL oral 500 mg (5 mL) PO ONCE #200 mL 08/29/23 solution (Keppra) midodrine 10 mg tablet 10 mg PO BID blood pressure 08/29/23 support #60 tabs pyridostigmine bromide 60 mg 60 mg PO BID carotid sinus 08/29/23 tablet (Mestinon) syndrome, weakness #60 tabs atorvastatin 20 mg/5 mL (4 mg/mL) 40 mg (10 mL) PO DAILY 09/14/23 oral suspension Hyperlipidemia #150 mL methylphenidate HCl 10 mg tablet 10 mg PO DAILY #90 tabs 09/21/23 Allergies Allergy/AdvReac Type Severity Reaction Status Date / Time No Known Allergies Allergy Verified 09/11/23 15:23 [facility] Disclaimer: The information contained in this section may have been updated after the patient was seen, as this information can be updated by other users. Medical History Abnormal CT scan, chest Abnormal EKG Bilateral leg numbness Carotid artery stenosis Coronary atherosclerosis due to calcified coronary lesion Depression Dizziness H/O tongue cancer History of cataract History of gastroesophageal reflux (GERD) History of stroke HLD (hyperlipidemia) Hypotension Left carotid bruit Leg pain, bilateral Right arm numbness Syncope Tongue cancer Surgical History History of appendectomy History of back surgery History of cataract surgery History of hernia repair History of surgery Family History Father Family history of heart disease Grandmother Family history of heart disease Family/Other Family history of heart disease Family history of cancer Social History Smoking Status: Unknown if ever smoked alcohol intake: former substance use type: denies use current occupational status: disabled Travel in the last 8 weeks: None household members: other housing: house marital status: ROS Obtained: Yes All systems reviewed & no additional complaints except as documented Physical Exam General General appearance: alert and in no apparent distress Head Head exam: atraumatic and normocephalic Eye Eye exam: Present normal appearance, PERRL and EOMI ENT ENT exam: Present normal exam, normal oropharynx, mucous membranes moist and normal external ear exam Neck Neck exam: Present normal inspection, full ROM and trachea midline; Absent tenderness Chest Chest inspection: Present normal inspection and symmetric chest wall rise; Absent tenderness Respiratory Respiratory exam: Present normal lung sounds bilaterally; Absent respiratory distress, wheezes, stridor or accessory muscle use Cardiovascular Cardiovascular exam: Present regular rate and normal rhythm Abdominal Exam Abdominal exam: Present soft; Absent distention, tenderness or guarding Extremities Exam Extremities exam: Present normal inspection, full ROM and normal capillary refill; Absent tenderness or edema Back Exam Back exam: Present normal inspection and full ROM; Absent tenderness Neurological Exam Neurological exam: Present alert, oriented X3 and other (Baseline neurologic deficits) Psychiatric Psychiatric exam: Present normal affect and normal mood Skin Skin exam: Present warm and dry Medical Decision Making Medical Records Medical records reviewed: Yes I reviewed the patient's medical records. Mariano Inquiry Pt receiving controlled substance: No Vital Signs: 09/22/23 23:48 Temperature 98.6 F Temperature Source Oral Pulse Rate [Left Radial] 84 Respiratory Rate 18 Blood Pressure [Right Arm] 110/73 Blood Pressure Mean [Right Arm] 85 Blood Pressure Source [Right Arm] Automatic Cuff Blood Pressure Position [Right Arm] Sitting 02 Sat by Pulse Oximetry 96 Oxygen Delivery Method Room Air Lab Data Lab results reviewed: Yes I reviewed the patient's lab results. Lab Results 09/23/23 00:44: WBC 7.1, RBC 3.98 L, Hgb 13.2 L, Hct 40.6 L, MCV 102.0 H, MCH 33.2 H, MCHC 32.6, RDW 15.5, Plt Count 215, MPV 9.6, Neut % (Auto) 77.4, Lymph % (Auto) 11.3, Bland % (Auto) 10.0 H, Eos % (Auto) 0.4, Baso % (Auto) 0.9, Neut # (Auto) 5.5, Lymph # (Auto) 0.8, Bland # (Auto) 0.7, Eos # (Auto) 0.0, Baso # (Auto) 0.1, Sodium 134 L, Potassium 4.3, Chloride 100, Carbon Dioxide 29, Anion Gap 9.3, BUN 22 H, Creatinine 0.80, Estimated Creat Clear 82, Estimated GFR 98, Est GFR ( Amer) 118, Glucose 100, Calcium 8.1 L, Total Bilirubin 0.3, AST 25, ALT 15, Alkaline Phosphatase 92, Troponin I < 0.01, Total Protein 6.8, Albumin 3.7, Globulin 3.1, Albumin/Globulin Ratio 1.2 09/23/23 00:46: SARS-CoV-2 (PCR) Detected A, Influenza A Untype (PCR) Not detected, Influenza Type B (PCR) Not detected 09/23/23 02:03: Urine Color Yellow, Urine Appearance Clear, Urine pH 6.5, Ur Specific [place] 1.020, Urine Protein Trace, Urine Glucose (UA) Negative, Urine Ketones Trace, Urine Blood Negative, Urine Nitrate Negative, Urine Bilirubin Negative, Urine Urobilinogen 1.0, Ur Leukocyte Esterase Negative, Urine RBC None, Urine WBC Occasional, Ur Squamous Epith Cells Occasional, Urine Bacteria Trace, Urine Mucus Trace 09/23/23 00:44 09/23/23 00:44 Orders (Tests/Meds): ORDERS Category Date Time Status XR chest portable Stat Exams 09/23/23 00:01 Completed Complete Blood Count Auto Diff Stat Lab 09/23/23 00:44 Completed Comprehensive Metabolic Panel Stat Lab 09/23/23 00:44 Completed Rapid PCR Covid and Flu A/B Stat Lab 09/23/23 00:46 Completed Troponin I Q3H Lab 09/23/23 03:15 Ordered Troponin I Q3H Lab 09/23/23 06:15 Ordered Troponin I Stat Lab 09/23/23 00:44 Completed Urinalysis and Microscopic Stat Lab 09/23/23 02:03 Completed ECG initial Besson Routine Y 09/23/23 00:39 Completed ECG Data Tracing #1: I reviewed this ECG and interpreted as documented below: Normal sinus rhythm with a ventricular rate of [address] casarez es concerning for ischemia. ECG initial impression date: 09/23/23 ECG initial impression time: 00:41 Medical Decision Narrative: In summary, this patient is a 63-year-old male presenting to the Emergency Department for evaluation of diaphoresis after waking up from a nap. Differential diagnoses considered include but are not limited to viral syndrome, pneumonia, urinary tract infection, dysrhythmia, ACS. Ruling out the most morbid conditions drove assessment. It should be noted patient's history includes CVA, hypertension, hyperlipidemia, and seizure disorder which may or may not be at goal therapy. This complicates all aspects of care by increasing patient's risk for morbidity. On exam, the patient is well-appearing with no new focal neurologic deficits. Vitals are reassuring on cardiac telemetry. He has no concerns or complaints at this time and is alert and oriented x 4. He is at his neurologic baseline. Workup included CBC, CMP, viral swab, urinalysis, troponin, chest x-ray, and EKG. I independently interpreted x-ray prior to the radiologist read and noted focal consolidation. Please see their read for final interpretation. EKG is reassuring. Labs were obtained that demonstrated no acutely concerning abnormalities with negative troponin. Patient did test positive for COVID-19, which I feel could be the reason for his diaphoresis.. On multiple subsequent reassessments, the patient is resting comfortably with no concerns or complaints. Vitals remain reassuring on cardiac telemetry. Given this, feel that he is appropriate for discharge with instructions for supportive management of viral syndrome. Family was given strict return precautions and the patient was discharged in stable condition after all questions were answered . Critical Care Critical Care Time Critical Care Time: No
--- NOTE | 2023-09-23 02:07 | PC.NURSE ---
Patient was incontinent of urine and clothing was saturated with urine. Changed patient into gown and performed pericare. Linen change.
[2023-09-23 02:08] LABS: Microscopic, Urine URINE MICROSCOPIC (MICROSCOPIC)
[2023-09-23 02:09] LABS: Appearance,Urine CLEAR (Clear); Bilirubin,Urine Negative (Negative); Blood, Urine Negative (Negative); Color,Urine YELLOW (Yellow); Glucose,Urine (UA) Negative (Negative); Ketones,Urine TRACE (Negative); Leukocyte Esterase,Urine Negative (Negative); Nitrate,Urine Negative (Negative); PH,Urine 6.5 (5.0-8.5); Protein,Urine TRACE (Negative)
[2023-09-23 02:23] LABS: Bacteria,Urine Trace /lpf; Mucus,Urine Trace /lpf; Squamous Epithelial Cell,Urine Occasional #/hpf (0-5); WBC,Urine Occasional #/hpf (0-3)
--- NOTE | 2023-09-23 02:29 | PC.NURSE ---
attempted to contact son, no answer and mail box is full
--- NOTE | 2023-09-23 03:29 | PC.NURSE ---
Spoke with Maddie at EMS regarding tx back home she advised they would be up here shortly
== END 2023-09-23 03:59 | disposition home or self-care (01) ==
PROVIDERS: Emergency Provider Emergency Medicine
DX: U07.1 COVID-19 (principal); I25.10 Atherosclerotic heart disease of native coronary artery without angina pectoris; I25.84 Coronary atherosclerosis due to calcified coronary lesion; E78.5 Hyperlipidemia, unspecified; I10 Essential (primary) hypertension; Z86.73 Personal history of transient ischemic attack (TIA), and cerebral infarction without residual deficits; Z93.1 Gastrostomy status
CPT/HCPCS: 71045; 80053; 81001; 84484; 85025; 87636; 93005; 99284

== ENCOUNTER 2023-11-09 19:10 | Outpatient (CLI) | payer MEDICARE, SELFPAY ==
[2023-11-09 18:50] LABS: Chol/HDL Ratio 7.6 (1-3.5); Cholesterol 197 mg/dl (140-200); HDL Cholesterol 26 mg/dl (40-60); Triglycerides 179 mg/dl (30-150); VLDL Cholesterol 36 mg/dL (0-40)
[2023-11-09 19:01] LABS: Direct LDL Cholesterol 115.43 mg/dL (100-129)
[2023-11-09 19:35] LABS: Hemoglobin A1C 5.4 % (4.0-6.0)
[2023-11-09 19:37] LABS: Vitamin B12 370 pg/mL (239-931)
== END 2023-11-09 23:59 ==
LOC: LAB.DROPOF 19:10
PROVIDERS: PCP Family Medicine; Visit Provider Family Medicine
DX: D75.89 Other specified diseases of blood and blood-forming organs (principal); E11.9 Type 2 diabetes mellitus without complications; E78.5 Hyperlipidemia, unspecified
CPT/HCPCS: 80061; 82607; 83036

== ENCOUNTER 2024-02-25 15:36 | Outpatient (CLI) | payer MEDICARE, SELFPAY ==
[2024-02-25 16:26] LABS: Blood Urea Nitrogen 23 mg/dl (9-20); Estimated Glomerular Filt Rate 97 ml/min (>60); GFR (African American) 118 ML/MIN (>60)
== END 2024-02-25 23:59 | disposition home or self-care (01) ==
LOC: LAB 15:53
PROVIDERS: PCP Internal Medicine; Visit Provider Physician Assistant
DX: I67.0 Dissection of cerebral arteries, nonruptured (principal); I10 Essential (primary) hypertension; I25.10 Atherosclerotic heart disease of native coronary artery without angina pectoris; Z79.899 Other long term (current) drug therapy
CPT/HCPCS: 36415; 82565; 84520

== ENCOUNTER 2024-02-26 18:48 | Outpatient (CLI) | payer MEDICARE, SELFPAY | END 2024-02-26 23:59 | disposition home or self-care (01) | LOC: RAD 18:49 | PROVIDERS: PCP Internal Medicine; Visit Provider Physician Assistant | DX: I67.1 Cerebral aneurysm, nonruptured (principal) ==

== ENCOUNTER 2024-02-28 11:20 | Outpatient (CLI) | payer MEDICARE, SELFPAY ==
[2024-02-28 19:36] LABS: Basophils % 0.5 % (0.1-2.0); Eosinophils # 0.1 K/mm3 (0.0-0.4); Eosinophils % 1.6 % (0.1-12.0); Hematocrit 45.3 % (42.0-52.0); Hemoglobin 14.3 g/dL (14.1-18.0); Lymphocytes # 1.2 K/mm3 (0.7-4.5); Lymphocytes % 18.8 % (10-50); Mean Corpuscular HGB Conc 31.6 g/dL (31.8-35.4); Mean Corpuscular Hemoglobin 33.3 pg (27.0-31.2); Mean Corpuscular Volume 105.6 fl (80-94); Mean Platelet Volume 10.9 fl (7.4-10.4); Monocytes # 0.4 K/mm3 (0.1-1.0); Monocytes % 6.4 % (1.7-9.3); Neutrophils # 4.5 K/mm3 (1.8-7.8); Neutrophils % 72.8 % (37.0-80.0); Platelet Count 198 K/mm3 (142-424); Red Blood Count 4.29 M/mm3 (4.60-6.20); Red Cell Distribution Width 14.4 % (11.5-17.5); White Blood Count 6.2 K/mm3 (4.8-10.8)
[2024-02-28 20:19] LABS: Chloride 102 mmol/L (98-107); Sodium 138 mmol/L (136-145)
[2024-02-28 20:20] LABS: Potassium 4.7 mmoL/L (3.5-5.1)
[2024-02-28 20:22] LABS: Alanine Aminotransferase 10 U/L (12-78); Albumin Level 4.2 g/dl (3.5-5.0); Albumin/Globulin Ratio 1.3 (1.1-1.8); Alkaline Phosphatase 108 U/L (38-126); Anion Gap 11.7 mEq/L (5-15); Aspartate Amino Transferase 20 U/L (17-59); Bilirubin,Total 0.4 mg/dl (0.2-1.3); Blood Urea Nitrogen 24 mg/dl (9-20); Carbon Dioxide 29 mmol/L (22.0-30.0); Estimated Glomerular Filt Rate 85 ml/min (>60); GFR (African American) 103 ML/MIN (>60); Globulin 3.2 g/dL (1.3-3.2); Total Protein,Serum 7.4 g/dl (6.3-8.2)
[2024-02-28 20:23] LABS: Calcium 9.4 mg/dl (8.4-10.2); Glucose 83 mg/dl (74-100)
== END 2024-02-28 23:59 | disposition home or self-care (01) ==
LOC: LAB.DROPOF 02-29 10:06
PROVIDERS: PCP Internal Medicine; Visit Provider Family Medicine
DX: I65.29 Occlusion and stenosis of unspecified carotid artery (principal); H10.9 Unspecified conjunctivitis; R07.0 Pain in throat
CPT/HCPCS: 80053; 85025; 87070

== ENCOUNTER 2024-02-29 15:19 | Outpatient (CLI) | payer MEDICARE, SELFPAY ==
[2024-02-29 13:07] LABS: Vitamin B12 341 pg/mL (239-931)
== END 2024-02-29 23:59 | disposition home or self-care (01) ==
LOC: LAB.DROPOF 03-12 15:20
PROVIDERS: PCP Family Medicine; Visit Provider Family Medicine
DX: D75.89 Other specified diseases of blood and blood-forming organs (principal); Z68.21 Body mass index [BMI] 21.0-21.9, adult
CPT/HCPCS: 82607

== ENCOUNTER 2024-03-10 14:42 | Outpatient (CLI) | payer MEDICARE, SELFPAY ==
--- NOTE | 2024-03-10 14:45 | MR_ITS ---
FINAL REPORT CLINICAL HISTORY: CEREBROVASCULAR DURAL AV FISTULA concern for hematoma FINDINGS: Multiplanar MR imaging of the brain was performed without and with contrast. There is no evidence of acute intracranial hemorrhage or mass. Comparison with the prior CT reveals that the patient has had an interval frontal craniotomy. There is left frontal encephalomalacia and hemosiderin disposition, consistent with prior intracranial hemorrhage. Mild chronic ischemic/microvascular change is present. No abnormal extra-axial fluid collection is seen. The ventricular size is within normal limits. There is no evidence of shift of the midline structures. The posterior fossa and brainstem have an unremarkable appearance. No area of abnormal restricted diffusion is identified. No abnormal contrast enhancement is seen. Normal major vessel vascular flow voids are noted. There is significant degenerative change of the upper cervical spine, with moderate canal stenosis at the C3-4 and C4-5 levels. There is mucosal thickening in multiple paranasal sinuses, as well as fluid in the right mastoid air cells. IMPRESSION: Interval frontal craniotomy since the prior CT of June 2023. Left frontal encephalomalacia and hemosiderin deposition is present, consistent with remote hemorrhage. No acute hemorrhage or enhancement are identified. Significant degenerative change in the upper cervical spine with moderate canal stenosis at the C3-4 and C4-5 levels. Reviewed, Interpreted and Dictated by Al Marina III, MD Transcribed by Eli Castle Authenticated and [facility]
[2024-03-10] MEDS: GADOTERIDOL INJ 20ML SYRINGE 15 ML IV (15:40)
[2024-03-10] MEDS: SODIUM CHLORIDE 0.9% 10ML FLUSH SYRINGE 10 ML IV (15:41)
== END 2024-03-10 23:59 | disposition home or self-care (01) ==
LOC: RAD 14:42
PROVIDERS: PCP Internal Medicine; Visit Provider Physician Assistant
DX: I67.1 Cerebral aneurysm, nonruptured (principal)
CPT/HCPCS: 70553; A9576

== ENCOUNTER 2024-03-20 14:31 | Outpatient (CLI) | payer MEDICARE, SELFPAY ==
--- NOTE | 2024-03-20 14:31 | US_ITS ---
FINAL REPORT CLINICAL HISTORY: throat pain COMPARISON: None FINDINGS: ULTRASOUND SOFT TISSUES NECK: Ultrasound examination of the soft tissues of the neck was performed with special attention to the left side of the neck which the patient states is the area of interest. The submandibular and parotid glands are unremarkable in appearance. No significant adenopathy is noted. No soft tissue mass or fluid collection is seen. The interest itself is unremarkable in appearance. IMPRESSION: No mass or fluid collection in the soft tissues of the neck, no significant adenopathy identified. Salivary glands are normal in appearance Reviewed, Interpreted and Dictated by Al Marina III, MD Transcribed by Eli Castle Authenticated and . [facility]
== END 2024-03-20 23:59 | disposition home or self-care (01) ==
LOC: RAD 14:31
PROVIDERS: PCP Internal Medicine; Visit Provider Family Medicine
DX: R07.0 Pain in throat (principal)
CPT/HCPCS: 76536

== ENCOUNTER 2024-04-11 08:34 | Outpatient (CLI) | payer MEDICARE, SELFPAY ==
--- NOTE | 2024-04-11 08:34 | CT_ITS ---
FINAL REPORT TECHNIQUE: Thin section axial CT images with coronal and sagittal reformats were performed through the neck. This study was performed with techniques to keep radiation doses as low as reasonably achievable (ALARA). Individualized dose reduction techniques using automated exposure control or adjustment of mA and/or kV according to the patient's size were employed. CLINICAL HISTORY: persistent sore throat, dysphagia COMPARISON: None FINDINGS: CT NECK SOFT TISSUES WITHOUT CONTRAST: There is advanced degenerative disc space narrowing in the cervical spine from the C3-4 level through the C6-7 level. There is grade 1 spondylolisthesis of C2 on C3. Prominent posterior osteophytes are present from the C3-4 through the C6-7 levels, with severe canal stenosis at the same levels. No adenopathy or mass lesion is present . Salivary glands are normal. Larynx is unremarkable. Thyroid gland is unremarkable. IMPRESSION: Multilevel cervical degenerative change as described, with severe bony canal stenosis from the C3-4 through C6-7 levels. Reviewed, Interpreted and Dictated by Korey Gonzalez MD Transcribed by Eli Castle Authenticated and [facility]
--- NOTE | 2024-04-11 08:34 | FL_ITS ---
FINAL REPORT CLINICAL HISTORY: persistent sore throat, dysphagia time- .25min dose- 7.39 mGy FINDINGS: ESOPHAGRAM HISTORY: Dysphagia. Sore throat. PROCEDURE: The patient ingested barium. Effervescent crystals were also administered. Spot and overhead films were obtained. The left total images were performed. FINDINGS: There is esophageal dysmotility. There was ivana aspiration to thin liquid barium. Examination was discontinued. Fluoroscopy exposure time: 0.25 minutes. Radiation exposure in reference to air kerma: 7.39 mGy IMPRESSION: 1. Esophageal dysmotility. 2. Ivana aspiration with thin liquid barium. Speech pathology consult recommended. Reviewed, Interpreted and Dictated by Korey Gonzalez MD Transcribed by ARNIE James Authenticated and [facility]
[2024-04-11] MEDS: BARIUM SULFATE (E-Z-HD 340GM);135ML BOTTLE 135 ML PO (09:28)
== END 2024-04-11 23:59 | disposition home or self-care (01) ==
LOC: RAD 08:34
PROVIDERS: PCP Internal Medicine; Visit Provider Nurse Practitioner
DX: R13.10 Dysphagia, unspecified (principal); R07.0 Pain in throat
CPT/HCPCS: 70490; 74220

== ENCOUNTER 2024-04-16 15:06 | Emergency (ER) | payer MEDICARE, SELFPAY ==
[2024-04-16 15:08] VITALS: BP 126/82; PULSE 59; RESP 18; TEMP 36.7; O2SAT 98; BMI 18.4
--- NOTE | 2024-04-16 15:22 | ED_ITS ---
<Statement entered by Kathryn Brink MD - 04/16/24 22:42> I was consulted by the MEL, and we discussed the complexity of the problems being addressed. I approved the treatment and management plan for this patient's care in the emergency department, thus performing a substantive portion of the medical decision making. Kathryn Brink MD, MAGGIE, FACEP Discharge Plan Disposition Patient Disposition: Home, Self-Care Condition: Good Prescriptions Prescriptions: No Action midodrine 10 mg tablet See Rx Instructions .ROUTE TID Qty: 90 1RF Dose Instruction: TAKE 1 TABLET BY MOUTH TWICE DAILY FOR BLOOD PRESSURE. DO NOT GIVE LAST DOSE OF DAY AFTER 6PM OR WITHIN 4 HOURS OF BEDTIME Rx Instructions: TAKE 1 TABLET BY MOUTH TID DAILY FOR BLOOD PRESSURE. DO NOT GIVE LAST DOSE OF DAY AFTER 6PM OR WITHIN 4 HOURS OF BEDTIME three times a day; atorvastatin 20 mg/5 mL (4 mg/mL) suspension 40 mg PO DAILY Qty: 150 2RF Rx Instructions: administer on an empty stomach, at least 1 hour before or 2 hours after food/meal(s) citalopram 20 mg tablet 20 mg PO DAILY Qty: 90 1RF Referrals Follow up/Referrals: Robby Nicole DO [Primary Care Provider] - See instructions Activity Restrictions/Add. Instructions Additional Instructions/Restrictions: You can take Tylenol [id number] for headaches every 4 hours or 2 Tylenol every 8 hours. Follow-up with your PCP for any worsening signs or symptoms or return to ER as needed Clinical Impressions Clinical Impression: Headache Qualifiers: Headache type: unspecified Headache chronicity pattern: episodic headache I ntractability: not intractable Qualified Code(s): R51.9 - Headache, unspecified Instructions Patient Instructions: DI for Headache Print Language Print Language: Tajik Discharge ED Provider: Kathryn Brink General Adult HPI General Chief complaint: Headache Stated complaint: headache, past brain bleed sent by Dr. Nicole Time Seen by Provider: 04/16/24 15:22 Mode of Arrival: Ambulatory Source of Information: Patient Limitations: No Limitations Description of Symptoms (Recalled from ER Triage Doc. by RN): Patient reports a headache for 2 weeks. States that he has had a previous head bleed and his doctor told him to come for a ct scan to make sure he doesn't have another one. History of Present Illness HPI narrative: Patient presents for evaluation of a headache. Patient reports that he has had a headache daily for 2 weeks to a month. 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 Glover ear nose and throat as well as his PCP Dr. 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 Reportedly he presented to his PCP for headaches and he was sent here for evaluation. We did not really speak with his PCP so unsure if he actually presented there for evaluation first. Patient denies nausea vomiting photophobia phonophobia and states that this headache is located in the anterior portion of his bilateral cranium. Patient has no vision changes no loss of consciousness change in senses. Rupal Coma Score is currently 15. Related Data Previous Rx's ?Medication ?Instructions ?Recorded atorvastatin 20 mg/5 mL (4 mg/mL) 40 mg (10 mL) PO DAILY 09/14/23 oral suspension Hyperlipidemia #150 mL citalopram 20 mg tablet 20 mg PO DAILY Depression #90 tabs 12/05/23 midodrine 10 mg tablet See Rx Instructions .Route TID #90 04/16/24 tabs Allergies Allergy/AdvReac Type Severity Reaction Status Date / Time No Known Allergies Allergy Verified 04/16/24 14:39 [facility] Disclaimer: The information contained in this section may have been updated after the patient was seen, as this information can be updated by other users. 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 COVID-19 H/O tongue cancer Hypotension Syncope No further syncope but still dizzy with sudden changes in position. Currently on salt tablets, midodrine 10 mg p.o. twice daily, (SSRI, Mestinon 60 mg po bid were discontinued following /[facility] admission). Right arm numbness History of stroke RIGHT EYE Depression Tongue cancer History of gastroesophageal reflux (GERD) History of cataract Left carotid bruit Carotid artery stenosis Dizziness Bilateral leg numbness Leg pain, bilateral Abnormal EKG HLD (hyperlipidemia) Coronary atherosclerosis due to calcified coronary lesion Calcification on chest CT. Abnormal CT scan, chest Surgical History History of hernia repair History of back surgery X2 History of appendectomy History of cataract surgery RODDY History of surgery FEEDING TUBE PLACED AND REMOVED. Family History Father Family history of heart disease Grandmother Family history of heart disease Family/Other Family history of heart disease Family history of cancer Social History Smoking Status: Never smoker alcohol intake: former substance use type: denies use current occupational status: disabled Travel in the last 8 weeks: None household members: other housing: house marital status: ROS Obtained: Yes Systems reviewed as appropriate & no additional complaints except as documented Physical Exam General General appearance: alert and in no apparent distress Respiratory Respiratory exam: Present normal lung sounds bilaterally Cardiovascular Cardiovascular exam: Present regular rate and normal rhythm Neurological Exam Neurological exam: Present alert and oriented X3 Medical Decision Making Medical Records Medical records reviewed: Yes I reviewed the patient's medical records. Mariano Inquiry Pt receiving controlled substance: No Vital Signs: 04/16/24 15:08 04/16/24 15:30 04/16/24 16:00 Temperature 98.0 F Temperature Source Oral Pulse Rate 54 L 55 L Pulse Rate [Radial] 59 L Respiratory Rate 18 Blood Pressure 132/85 130/81 Blood Pressure [Right Arm] 126/82 Blood Pressure Mean [Right Arm] 96 Blood Pressure Source [Right Arm] Automatic Cuff Blood Pressure Position [Right Arm] Sitting 02 Sat by Pulse Oximetry 98 97 99 Oxygen Delivery Method Room Air Room Air Room Air 04/16/24 16:30 04/16/24 17:58 Temperature 98 F Temperature Source Pulse Rate 49 L 51 L Pulse Rate [Radial] Respiratory Rate 16 Blood Pressure 128/81 130/83 Blood Pressure [Right Arm] Blood Pressure Mean [Right Arm] Blood Pressure Source [Right Arm] Blood Pressure Position [Right Arm] 02 Sat by Pulse Oximetry 99 Oxygen Delivery Method Room Air Room Air Lab Data Lab results reviewed: Yes I reviewed the patient's lab results. Lab Results 04/16/24 16:01: WBC 6.9, RBC 4.34 L, Hgb 14.9, Hct 45.7, MCV 105.2 H, MCH 34.4 H , MCHC 32.7, RDW 13.8, Plt Count 212, MPV 8.7, Neut % (Auto) 66.8, Lymph % (Auto) 23.7, Woods % (Auto) 7.3, Eos % (Auto) 1.8, Baso % (Auto) 0.5, Neut # (Auto) 4.6, Lymph # (Auto) 1.6, Woods # (Auto) 0.5, Eos # (Auto) 0.1, Baso # (Auto) 0.0, PT 10.5, INR 0.93, Sodium 141, Potassium 4.6, Chloride 105, Carbon Dioxide 31 H, Anion Gap 9.6, BUN 27 H, Creatinine 0.90, Estimated Creat Clear 60, Estimated GFR 85, Est GFR ( Amer) 103, Glucose 89, Calcium 9.3, Total Bilirubin 0.5, AST 22, ALT 12, Alkaline Phosphatase 113, Total Protein 7.9, Albumin 4.5, Globulin 3.4 H, Albumin/Globulin Ratio 1.3 04/16/24 16:01 04/16/24 16:01 Orders (Tests/Meds): ED MEDICATIONS Discontinued Medications Generic Name Dose Route Start Last Admin Trade Name Evelyn PRN Reason Stop Dose Admin Acetaminophen 1,000 mg 04/16/24 15:48 04/16/24 15:57 Acetaminophen 1,000mg/100ml Vial IV 04/16/24 15:49 1,000 mg ONCE ONE Administration Iopamidol 80 ml 04/16/24 17:03 Iopamidol-370 (76%);100ml Bottle IV 04/16/24 17:04 ONCE ONE Ondansetron HCl 4 mg 04/16/24 15:48 04/16/24 15:57 Ondansetron 4mg/2ml Vial IV 04/16/24 15:49 4 mg ONCE ONE Administration Sodium Chloride 10 ml 04/16/24 17:03 Sodium Chloride 0.9% 10ml Syr (Rad Only) IV 04/16/24 17:04 ONCE ONE Sodium Chloride 50 ml 04/16/24 17:03 0.9 % Sodium Chloride 50 Ml Vial IV 04/16/24 17:04 ONCE ONE ORDERS Category Date Time Status CT angio head Stat Cat Scan 04/16/24 15:[address] head/brain wo con Stat Cat Scan 04/16/24 15:50 Completed CBC w/Auto Diff [Complete Blood Count Auto Diff] Stat Lab 04/16/24 16:01 Completed CMP [Comprehensive Metabolic Panel] Stat Lab 04/16/24 16:01 Completed INR [Prothrombin Time INR] Stat Lab 04/16/24 16:01 Completed Medical Decision Narrative: In summary patient is a 64-year-old male who presents to the emergency department for evaluation of headache. Patient is hemodynamically stable upon arrival, afebrile. Physical exam is unremarkable nonfocal including Bea[place]ont Coma Score 15 cranial nerves II through XII intact grossly to exam breath sounds are clear and equal bilaterally to the bases without adventitious sounds patient has PEG tube abdomen soft nontender.. Differential diagnosis includes simple headache versus new intracranial bleed versus sinusitis etc. Initial workup will be conducted with hematologic labs CT scan of the head without contrast CTA of the head. Initial interventions include crystalloid bolus acetaminophen. Initial workup reviewed by me shows his hematologic labs are nonactionable. My informal interpretation of his CT of his head without contrast and CTA shows no acute intracranial abnormality but lots of chronic stable changes prior to radiology read.. Upon repeat evaluation patient's headache was completely resolved with initial intervention. Given this patient is appropriate for discharge with instructions to continue taking Tylenol every 8 hours as needed for headache and follow-up with his PCP for any worsening signs or symptoms or return to ER. Critical Care Critical Care Time Critical Care Time: No
[2024-04-16 15:30] VITALS: BP 132/85; PULSE 54; O2SAT 97
--- NOTE | 2024-04-16 15:50 | CT_ITS ---
PROCEDURE INFORMATION: Exam: CTA Head With Contrast, Arteriography Exam date and time: 04/16/2024 4:58 PM Age: 64 years old Clinical indication: Pain; Headache; Additional info: Headache, previous ich TECHNIQUE: Imaging protocol: Computed tomographic angiography of the head with contrast. Exam focused on the arteries. 3D rendering (Not supervised by radiologist): MIP and/or 3D reconstructed images were created by the technologist. Radiation optimization: All CT scans at this facility use at least one of these dose optimization techniques: automated exposure control; mA and/or kV adjustment per patient size (includes targeted exams where dose is matched to clinical indication); or iterative reconstruction. Contrast material: ISOVUE; Contrast volume: 80 ml; Contrast route: INTRAVENOUS (IV); COMPARISON: CT HEAD/BRAIN WO CON 04/16/2024 4:56 PM FINDINGS: ANTERIOR CIRCULATION: Right internal carotid artery: Intracranial segment is patent with no significant stenosis. No aneurysm. Right middle cerebral artery: No occlusion or significant stenosis. No aneurysm. Right anterior cerebral artery: No occlusion or significant stenosis. No aneurysm. Left internal carotid artery: Intracranial segment is patent with no significant stenosis. No aneurysm. Left middle cerebral artery: No occlusion or significant stenosis. No aneurysm. Left anterior cerebral artery: No occlusion or significant stenosis. No aneurysm. POSTERIOR CIRCULATION: Right vertebral artery: No occlusion or significant stenosis. No aneurysm. Left vertebral artery: No occlusion or significant stenosis. No aneurysm. Basilar artery: No occlusion or significant stenosis. No aneurysm. Right posterior cerebral artery: No occlusion or significant stenosis. No aneurysm. Left posterior cerebral artery: No occlusion or significant stenosis. No aneurysm. Brain: No definite mass, mass effect, or midline shift. Cerebral ventricles: No ventriculomegaly. Bones/joints: Unremarkable. No acute fracture. Soft tissues: Unremarkable. IMPRESSION: No large vessel stenosis or occlusion.
--- NOTE | 2024-04-16 15:50 | CT_ITS ---
PROCEDURE INFORMATION: Exam: CT Head Without Contrast Exam date and time: 04/16/2024 4:56 PM Age: 64 years old Clinical indication: Pain; Headache; Additional info: Headache, previous ich TECHNIQUE: Imaging protocol: Computed tomography of the head without contrast. Radiation optimization: All CT scans at this facility use at least one of these dose optimization techniques: automated exposure control; mA and/or kV adjustment per patient size (includes targeted exams where dose is matched to clinical indication); or iterative reconstruction. COMPARISON: MR HEAD/BRAIN WO/W CON 03/10/2024 3:05 PM FINDINGS: Brain: Encephalomalacia is present within the left anterior frontal lobe. Stable. Cerebral ventricles: No ventriculomegaly. Paranasal sinuses: Visualized sinuses are unremarkable. No fluid levels. Mastoid air cells: Visualized mastoid air cells are well aerated. Bones: Anterior frontal craniotomy identified. Soft tissues: Unremarkable. IMPRESSION: 1. Encephalomalacia is present within the left anterior frontal lobe. Stable. Anterior frontal craniotomy identified. 2. No acute intracranial process is identified.
[2024-04-16] MEDS: ONDANSETRON 4MG/2ML VIAL 4 MG IV (15:57)
[2024-04-16] MEDS: ACETAMINOPHEN 1,000MG/100ML VIAL 1000 MG IV (15:57)
[2024-04-16 16:00] VITALS: BP 130/81; PULSE 55; O2SAT 99
[2024-04-16 16:13] LABS: Basophils % 0.5 % (0.1-2.0); Eosinophils # 0.1 K/mm3 (0.0-0.4); Eosinophils % 1.8 % (0.1-12.0); Hematocrit 45.7 % (42.0-52.0); Hemoglobin 14.9 g/dL (14.1-18.0); Lymphocytes # 1.6 K/mm3 (0.7-4.5); Lymphocytes % 23.7 % (10-50); Mean Corpuscular HGB Conc 32.7 g/dL (31.8-35.4); Mean Corpuscular Hemoglobin 34.4 pg (27.0-31.2); Mean Corpuscular Volume 105.2 fl (80-94); Mean Platelet Volume 8.7 fl (7.4-10.4); Monocytes # 0.5 K/mm3 (0.1-1.0); Monocytes % 7.3 % (1.7-9.3); Neutrophils # 4.6 K/mm3 (1.8-7.8); Neutrophils % 66.8 % (37.0-80.0); Platelet Count 212 K/mm3 (142-424); Red Blood Count 4.34 M/mm3 (4.60-6.20); Red Cell Distribution Width 13.8 % (11.5-17.5); White Blood Count 6.9 K/mm3 (4.8-10.8)
[2024-04-16 16:19] LABS: INR 0.93 (0.9-1.1); Prothrombin Time 10.5 seconds (10.1-12.5)
[2024-04-16 16:30] VITALS: BP 128/81; PULSE 49; O2SAT 99
[2024-04-16 16:36] LABS: Albumin Level 4.5 g/dl (3.5-5.0); Chloride 105 mmol/L (98-107); Potassium 4.6 mmoL/L (3.5-5.1); Sodium 141 mmol/L (136-145)
[2024-04-16 16:38] LABS: Blood Urea Nitrogen 27 mg/dl (9-20); Creatinine Clearance Estimated 60 mL/min (50-200); Estimated Glomerular Filt Rate 85 ml/min (>60); GFR (African American) 103 ML/MIN (>60)
[2024-04-16 16:39] LABS: Alanine Aminotransferase 12 U/L (12-78); Albumin/Globulin Ratio 1.3 (1.1-1.8); Alkaline Phosphatase 113 U/L (38-126); Anion Gap 9.6 mEq/L (5-15); Aspartate Amino Transferase 22 U/L (17-59); Bilirubin,Total 0.5 mg/dl (0.2-1.3); Calcium 9.3 mg/dl (8.4-10.2); Carbon Dioxide 31 mmol/L (22.0-30.0); Globulin 3.4 g/dL (1.3-3.2); Glucose 89 mg/dl (74-100); Total Protein,Serum 7.9 g/dl (6.3-8.2)
[2024-04-16 17:58] VITALS: BP 130/83; PULSE 51; RESP 16; TEMP 36.6; O2SAT 99
== END 2024-04-16 17:58 | disposition home or self-care (01) ==
PROVIDERS: Physician Assistant; Emergency Provider Student in an Organized Health Care Education/Training Program; PCP Internal Medicine
DX: G44.89 Other headache syndrome (principal); Q28.2 Arteriovenous malformation of cerebral vessels; Z85.841 Personal history of malignant neoplasm of brain; Z85.89 Personal history of malignant neoplasm of other organs and systems; Z92.3 Personal history of irradiation; I95.81 Postprocedural hypotension; R13.19 Other dysphagia
CPT/HCPCS: 70450; 70496; 80053; 85025; 85610; 96374; 96375; 99284; J0131; J2405

== ENCOUNTER 2024-04-24 10:39 | Outpatient (CLI) | payer MEDICARE, SELFPAY ==
--- NOTE | 2024-04-24 10:40 | FL_ITS ---
FINAL REPORT CLINICAL HISTORY: trouble swallowing 16.21 mGy DAP 220.15 fluoro 2.58 FINDINGS: MODIFIED BARIUM SWALLOW History: Dysphagia. FINDINGS: Fluoroscopy was provided for the speech pathologist to evaluate the swallowing mechanism. The patient was given several different consistencies of barium while the swallow was visualized fluoroscopically. The report of the speech pathologist should be consulted prior to making dietary decisions. Fluoro time: 2 minutes 58 seconds DAP: 220.15 uGy.m2 Radiation exposure in Reference air Kerma: 16.21 mGy. IMPRESSION: Modified barium swallow under fluoroscopic guidance. Please see the report of the speech pathologist for more detail. Films reviewed, interpreted and dictated by Dr. Gonzalez. Transcribed by Liang Barton PA-C. Reviewed, Interpreted and Dictated by Korey Gonzalez MD Transcribed by ARNIE Carson Authenticated and [facility]
[2024-04-24] MEDS: BARIUM SULFATE(LIQUID E-Z-PAQUE);355ML BOTTLE 355 ML PO (11:44)
--- NOTE | 2024-04-25 12:57 | DIET.NUTRFU ---
PCP Yina called to review patient's nutritional needs/tubefeeding. Patient had barium swallow study 04/24 and [employer] recommended NPO, signs of aspirating all consistencies. He has hx of tongue cancer and Esophageal dysmotility. [employer] did review oral care and free water protocol. Patient takes meds crushed via PEG. Spoke to Sonido, he has been taking 3 cans of complete 1.4, he thinks [facility] in [place] provides. Tried to call [facility] to verify prescription. Waiting for call back. CBW is 65kg, down from 70kg in November 2023. Based on CBW and desire to gain wt his nutritional needs are 1700-1850kcal, 70-80gm protein and 1820ml/day. He needs to increase to 5 cans/day providing 1750kcal, 90gm protein and 970ml formula water + 800ml flush= 1770ml/day. Will review with Sonido once prescription is changed through [facility]. He will be following with speech weekly with follow-up barium in approx 1 month.
--- NOTE | 2024-04-25 15:26 | HMH.SLMBS2 ---
Speech & Language Evaluation Speech/Language Mod Barium Swallow Start: 04/25/24 15:08 Freq: once Status: Complete Protocol: Document 04/24/24 11:55 ALEXIS (Rec: 04/25/24 15:26 ALEXIS [id number]) General Information General Current Food Consistancy Regular,Thin Liquids Dentition Poor Dentition Oxygen Status Room Air Ability to Follow Directions Good Communication Ability No Impairment MBS Recommendations Treatment/Strategies Treatment Recommendation Compens. Strategy Educat. Strategy/Precaution Recommend Sitting Upright (90 deg),Chin Tuck,Double Swallow Referrals/Other Recommended Referrals Dietary Consult,Alternate Feeding Method Other Recommendations Outpatient FRUIT COORDINATOR services for swallowing exercises and f/u MBSS in 3 months to assess improvments. Mod Barium Swallow Impressions Summary and Impressions Oral Phase Impression Moderate Impairment Oral Phase Summary Moderate impairment of the oral preparatory and oral transit phases of the swallow. 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 Pt also has ill-fitting dentures resulting in edentulous status being preferred during meal times adding increased mastication time for presented bolus. Scattered residuals were noted throughout the oral cavity and on base of tongue. Pharyngeal Phase Impression Severe Impairment Pharyngeal Phase Summary Severe impairment of the pharyngeal phase of the swallow. Pt frankly aspirated all presented and trialled bolus consistencies including thins, nectar thick, pudding, and puree (applesauce.) Pt required multiple throat clears and coughs to attempt to clear residual. Pt exhibits with limited BOT retraction and PPW movement, as well as reduced hyolaryngeal excursion resulting in reduced epiglottic coverage causing airway compromise as all bolus pooled into airspace as pt has premature spillage and A/P spills throughout the pharynx . It is recommended pt be placed NPO and return to FRUIT COORDINATOR services to address swallowing exercises. Speech/Language MBS Assessment/Goals/Plan Assessment Date of Evaluation: 04/24/23 Evaluation Type Initial Certification Assessment/Problems aspiration per MD order. Does Patient Qualify for Service Yes Qualify/Failure Comment Based on results of MBSS and pt interview, pt would benefit from skilled speech therapy services to address swallowing exercises prior to completing a f/u MBSS in 3 months. Pt expressed understanding and is also being referred to PCP and restaurant greeter. Recommendations PHYSICIAN CERTIFICATION: The specified therapy services are required, authorized, and reviewed every 30 days. Pt will be seen # times/week 1 for # weeks 12 Diet Recommendations Free Water Protocol SL Swallow Guidelines High aspiration risk Additional Consults Recommended Nutritional Consult Plan Pt/Guardian verbally ack understanding Yes of dx/prognosis/goals G -code Required No Fdc Goals Pt will maintain nutrition/hydration via Yes alternative means Education Instructions provided Discussed results of MBSS, referrals, and need for outpatient services with Mr. York who expressed understanding. Pt/Caregiver able to recall information Able to recall/restate Reinforcement needed No Mod Barium Swallow Setup Exam Setup Radiologist [place] Level of Consciousness Awake,Alert,Appropriate, Follows Commands Mod Barium Swallow-Lat View Textures Lateral View Food Presentation Thin Liquid via Cup,Thin Liquid via Straw,[place] Liquid via Spoon,Pureed Food- Thin, Pudding Oral Phase Labial Closure No Impairment (WFL) Bolus Formation Pooling L/R No Impairment (WFL) Bolus Formation under Tongue Moderate Impairment Bolus Formation Scattered Loss Moderate Impairment Mastication Rotary Chew Moderate Impairment Mastication Munching Moderate Impairment Mastication Lateralization Moderate Impairment Lingual Movement Severe Impairment Residue Clearing Severe Impairment Pharyngeal Phase A/P Lingual Propulsion Spills Severe Impairment Swallow Response Delay Moderate Impairment Base of Tongue Severe Impairment Epiglottic Coverage Severe Impairment Laryngeal Elevation Severe Impairment Vallecular Retention Clearing Moderate Impairment Pharyn. Wall Residue Clearing Moderate Impairment Piriform Sinus Retention Moderate Impairment Aspiration? Yes Degree of Aspiration Large When aspirated During the swallow Consistencies Aspirated all consistencies trialed Silent aspiration? Inconsistent Mod Barium Swallow-AP View Performed Mod Barium Swallow A/P View Test Not Applicable/Performed PHYSICIAN CERTIFICATION: I certify the specified therapy services for Sonido York are required, authorized, and reviewed every 30 days.
== END 2024-04-24 23:59 | disposition home or self-care (01) ==
LOC: RAD 10:40
PROVIDERS: PCP Family Medicine; Visit Provider Family Medicine
DX: R13.10 Dysphagia, unspecified (principal); R07.0 Pain in throat
CPT/HCPCS: 70371; 92611

== ENCOUNTER 2024-04-25 14:53 | Outpatient (CLI) | payer MEDICARE, SELFPAY ==
[2024-04-25 15:00] VITALS: BP 123/74; PULSE 63; RESP 16; TEMP 36.1; O2SAT 97
[2024-04-25 16:00] VITALS: BP 137/85; PULSE 59; RESP 16; O2SAT 99
[2024-04-25 17:00] VITALS: BP 147/86; PULSE 61; RESP 16; O2SAT 100
== END 2024-04-25 17:06 | disposition home or self-care (01) ==
LOC: INF 14:54
PROVIDERS: PCP Family Medicine; Visit Provider Family Medicine
DX: E86.0 Dehydration (principal)
CPT/HCPCS: 96360; 96361; J7030

== ENCOUNTER 2024-04-25 18:43 | Outpatient (CLI) | payer MEDICARE, SELFPAY ==
[2024-04-25 20:52] LABS: Creatinine,Urine Random 223 mg/dL (Not Estab.)
[2024-04-25 20:56] LABS: Microalbumin/Creatinine Ratio 12.7
== END 2024-04-25 23:59 | disposition home or self-care (01) ==
LOC: LAB.DROPOF 18:44
PROVIDERS: PCP Family Medicine; Visit Provider Family Medicine
DX: I65.23 Occlusion and stenosis of bilateral carotid arteries (principal); E86.0 Dehydration
CPT/HCPCS: 82043; 82570; 96360; 96361; J7030

== ENCOUNTER 2024-04-29 13:52 | Outpatient (CLI) | payer MEDICARE, SELFPAY ==
[2024-04-29 14:37] VITALS: BMI 21.2
--- NOTE | 2024-08-05 13:22 | DIET.NUTRFU ---
Saw patient prior to barium swallow study, PROJECT COACH consulted. Patient reports he is tolerating TF, still taking 5 cans of the complete 1.5. PROJECT COACH reported he had been putting soda down his TF. When asked he said he was putting mt dew and sweet tea into his G-Tube. Discouraged, those beverages are not goof for hydration, so unless tube is clogged soda should not be put down G-tube. Also explained it is very acidic and could be harmful to tube used on regular basis. Encouraged him to just use water. No recent weights on file. Appeared healthy and hydrated.
== END 2024-04-29 23:59 | disposition home or self-care (01) ==
LOC: DIETICIAN 13:53
PROVIDERS: PCP Internal Medicine; Visit Provider Family Medicine
DX: K22.4 Dyskinesia of esophagus (principal)
CPT/HCPCS: 97802; 97803

== ENCOUNTER 2024-05-09 19:42 | Outpatient (CLI) | payer MEDICARE, SELFPAY | END 2024-05-09 23:59 | disposition home or self-care (01) | LOC: LAB.DROPOF 19:43 | PROVIDERS: PCP Family Medicine; Visit Provider Family Medicine | DX: Z02.9 Encounter for administrative examinations, unspecified (principal) ==

== ENCOUNTER 2024-05-09 19:51 | Outpatient (CLI) | payer MEDICARE, SELFPAY ==
[2024-05-09 21:27] LABS: Microalbumin/Creatinine Ratio 10.5
[2024-05-09 21:41] LABS: Creatinine,Urine Random 140 mg/dL (Not Estab.)
== END 2024-05-09 23:59 | disposition home or self-care (01) ==
LOC: LAB.DROPOF 19:53
PROVIDERS: PCP Family Medicine; Visit Provider Family Medicine
DX: E63.9 Nutritional deficiency, unspecified (principal)
CPT/HCPCS: 82043; 82570

== ENCOUNTER 2024-05-26 13:32 | Outpatient (CLI) | payer MEDICARE, SELFPAY ==
--- NOTE | 2024-05-26 13:36 | FL_ITS ---
FINAL REPORT CLINICAL HISTORY: aspiration ft 4:23 dap 232.36 FINDINGS: MODIFIED BARIUM SWALLOW History: Dysphagia. FINDINGS: Fluoroscopy was provided for the speech pathologist to evaluate the swallowing mechanism. The patient was given several different consistencies of barium while the swallow was visualized fluoroscopically. The report of the speech pathologist should be consulted prior to making dietary decisions. Fluoro time: 4 minutes 23 seconds. DAP: 232.36. uGy.m2 0 images IMPRESSION: Modified barium swallow under fluoroscopic guidance. Please see the report of the speech pathologist for more detail. Films reviewed, interpreted and dictated by Dr. Gonzalez. Transcribed by Liang Barton PA-C. Reviewed, Interpreted and Dictated by Korey Gonzalez MD Transcribed by ARNIE Carson Authenticated and [facility]
--- NOTE | 2024-05-28 10:22 | HMH.SLMBS2 ---
Speech & Language Evaluation Speech/Language Mod Barium Swallow Start: 05/28/24 10:11 Freq: once Status: Complete Protocol: Document 05/26/24 13:50 SARIAHRENETTA (Rec: 05/28/24 10:22 [id number] General Information General Current Food Consistancy NPO Dentition Poor Dentition Oxygen Status Room Air Patient Orientation Person,Place,Time,Situation Ability to Follow Directions Good Communication Ability Mild Impairment MBS Recommendations Diet Dietary Recommendations NPO Treatment/Strategies Treatment Recommendation Oral Motor Exercises,Base of Tongue Exercises,Compens. Strategy Educat. Mod Barium Swallow Impressions Summary and Impressions Oral Phase Impression Moderate Impairment Oral Phase Summary Moderate impairment of the oral preparatory and oral transit phases of the swallow. 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 Pt also has ill-fitting dentures resulting in edentulous status being preferred during meal times adding increased mastication time for presented bolus. Scattered residuals were noted throughout the oral cavity and on base of tongue. Pharyngeal Phase Summary Severe impairment of the pharyngeal phase of the swallow. Pt frankly aspirated all presented and trialled bolus consistencies including nectar thick, and pudding. Mild improvement noted during pureed trial in which trace penetration of puree was noted but no aspiration. Pt required multiple throat clears and coughs to attempt to clear residual. Pt exhibits with limited BOT retraction and PPW movement, as well as reduced hyolaryngeal excursion resulting in reduced epiglottic coverage causing airway compromise as all bolus pooled into airspace as pt has premature spillage and A/P spills throughout the pharynx . It is recommended pt continue NPO status and continue speech therapy services services to address swallowing exercises. Speech/Language MBS Assessment/Goals/Plan Assessment Date of Evaluation: 05/26/24 Evaluation Type Initial Certification Assessment/Problems dysphagia and aspiration per MD order Does Patient Qualify for Service Yes Qualify/Failure Comment Based on results of MBSS and pt interview, pt would benefit from skilled speech therapy services to address swallowing exercises prior to completing a f/u MBSS in 3 months. Recommendations PHYSICIAN CERTIFICATION: The specified therapy services are required, authorized, and reviewed every 30 days. Pt will be seen # times/week 1 for # weeks 12 Diet Recommendations NPO Plan Pt/Guardian verbally ack understanding Yes of dx/prognosis/goals G -code Required No Education Instructions provided Discussed results of MBSS and need for continued outpatient services with Mr. York who expressed understanding. Pt/Caregiver able to recall information Able to recall/restate Reinforcement needed No Mod Barium Swallow Setup Exam Setup Radiologist Al Marina Level of Consciousness Awake,Alert,Appropriate, Follows Commands Mod Barium Swallow-Lat View Textures Lateral View Food Presentation [place] Liquid via Spoon,Pureed Food- Thin,Pudding Oral Phase Labial Closure No Impairment (WFL) Bolus Formation Pooling L/R No Impairment (WFL) Bolus Formation under Tongue Moderate Impairment Bolus Formation Scattered Loss Moderate Impairment Mastication Rotary Chew Moderate Impairment Mastication Munching Moderate Impairment Mastication Lateralization Moderate Impairment Lingual Movement Severe Impairment Residue Clearing Severe Impairment Pharyngeal Phase A/P Lingual Propulsion Spills Severe Impairment Swallow Response Delay Moderate Impairment Base of Tongue Severe Impairment Epiglottic Coverage Severe Impairment Laryngeal Elevation Severe Impairment Vallecular Retention Clearing Severe Impairment Pharyn. Wall Residue Clearing Moderate Impairment Piriform Sinus Retention Moderate Impairment Aspiration? Yes Degree of Aspiration Large When aspirated During the swallow Silent aspiration? Inconsistent Mod Barium Swallow-AP View Performed Mod Barium Swallow A/P View Test Not Applicable/Performed PHYSICIAN CERTIFICATION: I certify the specified therapy services for Sonido York are required, authorized, and reviewed every 30 days.
== END 2024-05-26 23:59 | disposition home or self-care (01) ==
LOC: RAD 13:33
PROVIDERS: PCP Internal Medicine; Visit Provider Family Medicine
DX: T17.908A Unspecified foreign body in respiratory tract, part unspecified causing other injury, initial encounter (principal); K22.4 Dyskinesia of esophagus; R13.10 Dysphagia, unspecified
CPT/HCPCS: 70371; 92611

== ENCOUNTER 2024-08-05 10:48 | Outpatient (CLI) | payer MEDICARE, SELFPAY ==
--- NOTE | 2024-08-05 10:50 | FL_ITS ---
FINAL REPORT CLINICAL HISTORY: diffculty swallowing 492.74 dap 7.21 fluoro FINDINGS: MODIFIED BARIUM SWALLOW History: Dysphagia FINDINGS: Fluoroscopy was provided for the speech pathologist to evaluate the swallowing mechanism. The patient was given several different consistencies of barium while the swallow was visualized fluoroscopically. The report of the speech pathologist should be consulted prior to making dietary decisions. Fluoroscopy time: 7 minutes 21 seconds Fluoro dose: 492.74 DAP in uGym2 IMPRESSION: Modified barium swallow under fluoroscopic guidance. Please see the report of the speech pathologist for Dietary recommendations. Films reviewed , interpreted and dictated by Dr. Marina Transcribed by Aubrey Jacob PA-C. Reviewed, Interpreted and Dictated by Al Marina III, MD Transcribed by ARNIE James Authenticated and [facility]
[2024-08-05] MEDS: BARIUM SULFATE(LIQUID E-Z-PAQUE);355ML BOTTLE 355 ML PO (12:20)
== END 2024-08-05 23:59 | disposition home or self-care (01) ==
LOC: RAD 10:49
PROVIDERS: PCP Family Medicine; Visit Provider Family Medicine
DX: R13.10 Dysphagia, unspecified (principal); T17.908A Unspecified foreign body in respiratory tract, part unspecified causing other injury, initial encounter
CPT/HCPCS: 74230; 92611

== ENCOUNTER 2024-09-04 13:40 | Outpatient (CLI) | payer MEDICARE, SELFPAY | END 2024-09-04 23:59 | disposition home or self-care (01) | LOC: LAB.DROPOF 09-08 09:45 | PROVIDERS: PCP Family Medicine; Visit Provider Family Medicine | DX: B37.0 Candidal stomatitis (principal) | CPT/HCPCS: 87070 ==

== ENCOUNTER 2024-09-08 13:00 | Outpatient (RCR) | payer MEDICARE, SELFPAY | END 2024-09-08 23:59 | disposition home or self-care (01) | LOC: ST 13:00 | PROVIDERS: Visit Provider Family Medicine | DX: K22.4 Dyskinesia of esophagus (principal); R13.10 Dysphagia, unspecified | CPT/HCPCS: 92526 ==

== ENCOUNTER 2024-09-22 12:44 | Outpatient (RCR) | payer MEDICARE, SELFPAY | END 2024-09-22 23:59 | disposition home or self-care (01) | LOC: ST 12:44 | PROVIDERS: Visit Provider Family Medicine | DX: K22.4 Dyskinesia of esophagus (principal); R13.10 Dysphagia, unspecified | CPT/HCPCS: 92526 ==